=== PATIENT | female | born 1985 | race Caucasian/White ===

== ENCOUNTER 2016-08-22 15:24 | Inpatient (IN) | payer MEDICAID ==
[2016-08-21] MEDS: LORazepam 2 MG/ML, 1ML IVPush PRN (22:50)
[~2016-08-22] VITALS: Ht 147.3 cm; Wt 63.1 kg
[2016-08-22 16:26] LABS: HEMOGLOBIN 14.8 g/dL (11.7-16.4)
[2016-08-22] MEDS ORDERED: ONDANSETRON 2MG/ML, 2ML IVPush ONE (16:30)
[2016-08-22] MEDS ORDERED: SODIUM CHLORIDE FLUSH 10ML SYR IVF ONE (16:30)
[2016-08-22] MEDS ORDERED: SODIUM CHLORIDE 0.9% 1,000ML IVBOLUS ONE ×2 (16:30→17:00)
[2016-08-22] MEDS ORDERED: ONDANSETRON 2MG/ML, 2ML ONE (16:32)
[2016-08-22 16:36] LABS: BLOOD UREA NITROGEN 41 mg/dL (7-18)
[2016-08-22 16:54] LABS: ACETAMINOPHEN < 2 mcg/mL (10-30)
[2016-08-22] MEDS ORDERED: LORazepam 2 MG/ML, 1ML IVPush ONE ×2 (17:00)
[2016-08-22] MEDS ORDERED: LORazepam 2 MG/ML, 1ML ONE (17:02)
[2016-08-22 17:11] LABS: ASPARTATE AMINO TRANSFERASE 11170 U/L (15-37)
[2016-08-22] MEDS ORDERED: DEXTROSE 50%, 50ML SYRINGE IVPush ONE (17:30)
[2016-08-22] MEDS ORDERED: DEXTROSE 50%, 50ML SYRINGE ONE (17:33)
[2016-08-22] MEDS ORDERED: MELO-184 PO (17:37)
[2016-08-22] MEDS ORDERED: CYCL-259 PO (17:37)
[2016-08-22] MEDS ORDERED: ACET-709 PO (17:37)
[2016-08-22] MEDS ORDERED: ACETYLCYSTEINE IV ONE ×3 (18:00→23:00)
[2016-08-22] MEDS ORDERED: DEXTROSE 5% IV ONE ×3 (18:00→23:00)
[2016-08-22] MEDS ORDERED: SODIUM CHLORIDE 0.9% 1,000 ML IV SCH (18:42)
[2016-08-22] MEDS ORDERED: PHYTONADIONE 10 MG in SODIUM CHLORIDE 0.9% 50 ML IV ONE (19:00)
[2016-08-22] MEDS ORDERED: DOCUSATE 100 MG CAPSULE PO PRN (19:00)
[2016-08-22] MEDS ORDERED: ONDANSETRON 2MG/ML, 2ML IVP PRN (19:00)
[2016-08-22] MEDS ORDERED: POLYETHYLENE GLYCOL 17 GM PACKET PO PRN (19:00)
[2016-08-22] MEDS ORDERED: BISACODYL 10 MG SUPP PR PRN (19:00)
[2016-08-22] MEDS ORDERED: LABETALOL 5MG/ML, 20ML IV PRN (19:00)
[2016-08-22] MEDS: D5%-0.45% NACL 1,000 ML IV SCH (19:47)
[2016-08-22 20:23] LABS: HIV 1&2 ANTIBODY SCREEN Nonreactive (Nonreactive); HIV-1 p24 ANTIGEN Nonreactive (Nonreactive)
[2016-08-22 21:36] LABS: ABG COLLECTION SITE RIGHT RADIAL; COLLATERAL CIRCULATION TESTING NORMAL
[2016-08-22] MEDS: HEPARIN 5,000 UNITS/ML, 1ML SQ SCH (22:02)
[2016-08-22] MEDS: HALOPERIDOL 5 MG/ML IV PRN ×2 (22:45→23:20)
[2016-08-22] MEDS: LORazepam 2 MG/ML, 1ML IVPush PRN ×2 (22:55→23:21)
[2016-08-22 23:00] VITALS: BP 120/62
[2016-08-22] MEDS: LACTULOSE 20 GM/30 ML UDC PO SCH (23:16)
[2016-08-22 23:54] LABS: DAU SCREEN DISCLAIMER
[2016-08-23 00:25] LABS: HCG UR OBC PASS
[2016-08-23] MEDS: D5%-0.45% NACL 1,000 ML IV SCH ×3 (03:29→23:57)
[2016-08-23] MEDS: HEPARIN 5,000 UNITS/ML, 1ML SQ SCH ×2 (03:29→11:00)
[2016-08-23 04:00] VITALS: BP 126/86
[2016-08-23 04:50] LABS: HEMOGLOBIN 12.9 g/dL (11.7-16.4)
[2016-08-23 04:55] LABS: BLOOD UREA NITROGEN 30 mg/dL (7-18)
[2016-08-23 05:14] LABS: ASPARTATE AMINO TRANSFERASE 6939 U/L (15-37)
[2016-08-23] MEDS: RIFAXIMIN 550 MG TABLET PO SCH ×3 (06:17→20:46)
[2016-08-23] MEDS ORDERED: LABETALOL 5MG/ML, 20ML IV PRN (07:24)
[2016-08-23] MEDS ORDERED: POTASSIUM CHLORIDE 10% 40 MEQ/30 ML UDC PO ONE (07:30)
[2016-08-23] MEDS: PANTOPRAZOLE 40 MG IV IVP SCH (09:26)
[2016-08-23] MEDS: LACTULOSE 20 GM/30 ML UDC PO SCH ×3 (09:26→20:46)
[2016-08-24 04:00] VITALS: BP 140/82
[2016-08-24 04:42] LABS: HEMOGLOBIN 12.4 g/dL (11.7-16.4)
[2016-08-24 04:53] LABS: BLOOD UREA NITROGEN 15 mg/dL (7-18)
[2016-08-24 05:09] LABS: ASPARTATE AMINO TRANSFERASE 3343 U/L (15-37)
[2016-08-24] MEDS: D5%-0.45% NACL 1,000 ML IV SCH (06:12)
[2016-08-24] MEDS: ACETYLCYSTEINE IV SCH (09:11)
[2016-08-24] MEDS: DEXTROSE 5% IV SCH (09:11)
[2016-08-24] MEDS: PANTOPRAZOLE 40 MG IV IVP SCH (09:11)
[2016-08-24] MEDS: RIFAXIMIN 550 MG TABLET PO SCH ×2 (09:31→21:19)
[2016-08-24] MEDS: POTASSIUM CHLORIDE 10% 40 MEQ/30 ML UDC PO SCH ×2 (09:31→21:20)
[2016-08-24] MEDS: LACTULOSE 20 GM/30 ML UDC PO SCH ×3 (09:31→21:19)
[2016-08-24] MEDS ORDERED: MORPHINE SULFATE 4 MG/ML, 1ML ONE (09:49)
[2016-08-24] MEDS ORDERED: MIDAZOLAM 1 MG/ML, 2ML ONE (09:49)
[2016-08-24] MEDS ORDERED: MORPHINE SULFATE 4 MG/ML, 1ML IVPush PRN (10:00)
[2016-08-24] MEDS ORDERED: MIDAZOLAM 1 MG/ML, 2ML IVPush PRN (10:00)
[2016-08-24] MEDS ORDERED: GADOBUTROL 7.5 MMOL/7.5 ML PFS ONE (10:43)
[2016-08-24] MEDS: D5%-0.9% NACL 1,000 ML IV SCH ×2 (11:24→21:22)
[2016-08-24 11:49] LABS: HEPATITIS C VIRUS ANTIBODY Nonreactive (Nonreactive)
[2016-08-24] MEDS ORDERED: LACTULOSE 3.3 GM/5 ML ORAL.SOL RC ONE ×2 (12:00→18:00)
[2016-08-24 16:58] LABS: ANA SCREEN NEGATIVE (Negative)
[2016-08-25] MEDS: DEXTROSE 5% IV SCH ×2 (04:14→22:34)
[2016-08-25] MEDS: ACETYLCYSTEINE IV SCH ×2 (04:14→22:34)
[2016-08-25 04:42] LABS: BLOOD UREA NITROGEN 8 mg/dL (7-18)
[2016-08-25 04:58] LABS: ASPARTATE AMINO TRANSFERASE 1508 U/L (15-37)
[2016-08-25] MEDS ORDERED: POTASSIUM PHOSPHATE 44 MEQ in SODIUM CHLORIDE 0.9% 500 ML IV ONE (05:00)
[2016-08-25] MEDS: D5%-0.9% NACL 1,000 ML IV SCH ×2 (06:02→22:33)
[2016-08-25] MEDS ORDERED: SODIUM PHOSPHATE 20 MMOL in SODIUM CHLORIDE 0.9% 500 ML IV ONE (07:30)
[2016-08-25] MEDS ORDERED: POTASSIUM CHLORIDE 10% 40 MEQ/30 ML UDC PO ONE (07:30)
[2016-08-25] MEDS: PANTOPRAZOLE 40 MG IV IVP SCH (09:31)
[2016-08-25] MEDS: RIFAXIMIN 550 MG TABLET PO SCH ×2 (09:31→20:07)
[2016-08-25] MEDS: LACTULOSE 20 GM/30 ML UDC PO SCH ×2 (09:31→15:59)
[2016-08-25] MEDS: OXYcodone IR 5MG TABLET PO PRN ×2 (15:19→20:07)
[2016-08-25 19:06] LABS: HERPES SIMPLEX VIRUS-1 DNA PCR Negative (Negative); HERPES SIMPLEX VIRUS-2 DNA PCR Negative (Negative)
[2016-08-26 05:00] LABS: HEMOGLOBIN 12.9 g/dL (11.7-16.4)
[2016-08-26] MEDS: OXYcodone IR 5MG TABLET PO PRN ×3 (05:06→22:41)
[2016-08-26 05:11] LABS: BLOOD UREA NITROGEN 6 mg/dL (7-18)
[2016-08-26 05:21] LABS: ASPARTATE AMINO TRANSFERASE 892 U/L (15-37)
[2016-08-26] MEDS ORDERED: POTASSIUM PHOSPHATE 44 MEQ in SODIUM CHLORIDE 0.9% 500 ML IV ONE (06:00)
[2016-08-26] MEDS ORDERED: SODIUM PHOSPHATE 20 MMOL in SODIUM CHLORIDE 0.9% 500 ML IV ONE (07:30)
[2016-08-26] MEDS: DEXTROSE 5% IV SCH (08:00)
[2016-08-26] MEDS: ACETYLCYSTEINE IV SCH (08:00)
[2016-08-26] MEDS: PANTOPRAZOLE 40 MG IV IVP SCH (08:11)
[2016-08-26] MEDS: D5%-0.9% NACL 1,000 ML IV SCH (09:00)
[2016-08-26] MEDS: RIFAXIMIN 550 MG TABLET PO SCH ×2 (10:18→22:34)
[2016-08-26] MEDS: LACTULOSE 20 GM/30 ML UDC PO SCH ×2 (10:18→22:34)
[2016-08-26] MEDS: POTASSIUM CHLORIDE 10% 40 MEQ/30 ML UDC PO SCH ×2 (10:18→22:34)
[2016-08-26] MEDS ORDERED: ALUMINUM/MAG/SIMETHICONE 30 ML UDC PO PRN (12:30)
[2016-08-26 14:28] VITALS: BP 115/78
[2016-08-26 18:38] VITALS: BP 122/81
[2016-08-27 00:24] VITALS: BP 109/71
[2016-08-27 05:35] LABS: HEMOGLOBIN 11.7 g/dL (11.7-16.4)
[2016-08-27 05:44] LABS: BLOOD UREA NITROGEN 8 mg/dL (7-18)
[2016-08-27 05:52] LABS: ASPARTATE AMINO TRANSFERASE 336 U/L (15-37)
[2016-08-27 06:24] LABS: DIFF TOTAL CELLS COUNTED 100 CELL DIFF
[2016-08-27 06:26] LABS: VERIFY COUNTS? YES
[2016-08-27 06:27] LABS: ANISOCYTOSIS 1+; POLYCHROMASIA 1+
[2016-08-27] MEDS ORDERED: SODIUM PHOSPHATE 20 MMOL in SODIUM CHLORIDE 0.9% 500 ML IV ONE (07:30)
[2016-08-27 07:37] VITALS: BP 105/70
[2016-08-27] MEDS ORDERED: PROCHLORPERAZINE 10MG TABLET PO PRN (09:30)
[2016-08-27] MEDS: RIFAXIMIN 550 MG TABLET PO SCH (09:52)
[2016-08-27] MEDS: POTASSIUM CHLORIDE 10% 40 MEQ/30 ML UDC PO SCH ×2 (09:52→20:22)
[2016-08-27] MEDS: LACTULOSE 20 GM/30 ML UDC PO SCH (09:52)
[2016-08-27] MEDS: D5%-0.9% NACL 1,000 ML IV SCH (13:13)
[2016-08-27] MEDS: OXYcodone IR 5MG TABLET PO PRN (13:30)
[2016-08-27 13:59] VITALS: BP 147/93
[2016-08-27 19:00] VITALS: BP 130/82
[2016-08-28 00:23] VITALS: BP 116/71
[2016-08-28 05:42] LABS: HEMOGLOBIN 11.1 g/dL (11.7-16.4)
[2016-08-28 05:52] LABS: ASPARTATE AMINO TRANSFERASE 179 U/L (15-37); BLOOD UREA NITROGEN 7 mg/dL (7-18)
[2016-08-28 07:51] VITALS: BP 116/79
[2016-08-28] MEDS ORDERED: SODIUM PHOSPHATE 20 MMOL in SODIUM CHLORIDE 0.9% 500 ML IV ONE (08:00)
[2016-08-28] MEDS: POTASSIUM CHLORIDE 10% 40 MEQ/30 ML UDC PO SCH (08:29)
[2016-08-28] MEDS: D5%-0.9% NACL 1,000 ML IV SCH (08:36)
[2016-08-28] MEDS: OXYcodone IR 5MG TABLET PO PRN (11:04)
[2016-08-28 12:54] VITALS: BP 121/86
== END 2016-08-28 13:47 | disposition home or self-care (01) | DRG 441 ==
LOC: ED 18:18 → EDIP 18:19 → CCU 18:54 → 3NE 08-26 14:20
PROVIDERS: ADMIT Internal Medicine; ATTEND Internal Medicine
PROC: 0T9B70Z Drainage of Bladder with Drainage Device, Via Natural or Artificial Opening (ICD-10-PCS; principal; 2016-08-22)
DX: K72.90 Hepatic failure, unspecified without coma (principal); G93.41 Metabolic encephalopathy; D68.4 Acquired coagulation factor deficiency; N17.9 Acute kidney failure, unspecified; R65.10 Systemic inflammatory response syndrome (SIRS) of non-infectious origin without acute organ dysfunction; E87.1 Hypo-osmolality and hyponatremia; K76.6 Portal hypertension; D72.828 Other elevated white blood cell count; E16.2 Hypoglycemia, unspecified; F12.10 Cannabis abuse, uncomplicated; F17.200 Nicotine dependence, unspecified, uncomplicated; Z82.49 Family history of ischemic heart disease and other diseases of the circulatory system; M32.9 Systemic lupus erythematosus, unspecified; E87.6 Hypokalemia
CPT/HCPCS: 36415; 36600; 51701; 70450; 70553; 74000; 76705; 80053; 80074; 80307; 80329; 81001; 81025; 82140; 82248; 82390; 82550; 82728; 82803; 82962; 83516; 83540; 83550; 83605; 83735; 84100; 84439; 84443; 85025; 85610; 85730; 86038; 86644; 86645; 86703; 87040; 87081; 87529; 87899; 93005; 96361; 96374; 96375; A9585; J0132; J1644; J2405; J3430; J7042; J7060; J7070; Q0164; C9113; G0435; G0480; J1630; J2060; J7030; J7040; P9612

== ENCOUNTER 2017-02-23 15:00 | Observation (INO) | payer MEDICAID ==
[~2017-02-23] VITALS: Ht 165.1 cm; Wt 57.6 kg
[~2017-02-23 15:00] MED LIST: ACET-709 PO; CYCL-259 PO; MELO15TA24 PO
[2017-02-23 15:29] LABS: HEMATOCRIT 41.3 % (34.6-47.8); HEMOGLOBIN 14.1 g/dL (11.7-16.4); WHITE BLOOD COUNT 15.1 x10^3/uL (3.4-10)
[2017-02-23 15:39] LABS: ASPARTATE AMINO TRANSFERASE 21 U/L (15-37); BLOOD UREA NITROGEN 12 mg/dL (7-18)
[2017-02-23 15:42] LABS: ACETAMINOPHEN < 2 mcg/mL (10-30)
[2017-02-23] MEDS ORDERED: SODIUM CHLORIDE FLUSH 10ML SYR IVF ONE (16:00)
[2017-02-23 16:06] LABS: DAU SCREEN DISCLAIMER
[2017-02-23] MEDS ORDERED: ZIPRASIDONE 20 MG INJ IM ONE (18:30)
[2017-02-23] MEDS ORDERED: ONDANSETRON ODT 4 MG PO PRN (19:00)
[2017-02-23 20:00] VITALS: BP 146/92
[2017-02-23] MEDS: HALOPERIDOL 5 MG TABLET PO PRN (21:04)
[2017-02-23 22:40] VITALS: BP 121/80
[2017-02-24 08:00] VITALS: BP 119/76
[2017-02-24] MEDS: HALOPERIDOL 5 MG TABLET PO PRN (08:17)
[2017-02-24] MEDS ORDERED: NICOTINE 21 MG/24 HR PATCH.TD24 ONE (10:16)
[2017-02-24] MEDS: NICOTINE 21 MG/24 HR PATCH.TD24 TD SCH (10:19)
[2017-02-24 12:22] LABS: HEMATOCRIT 40.6 % (34.6-47.8); HEMOGLOBIN 13.9 g/dL (11.7-16.4)
[2017-02-24] MEDS: ACETAMINOPHEN 325 MG TABLET PO PRN (16:19)
[2017-02-24] MEDS ORDERED: LORazepam 2 MG/ML, 1ML IM ONE (16:30)
[2017-02-24] MEDS ORDERED: OLANZAPINE 2.5 MG TABLET PO PRN (17:30)
[2017-02-24] MEDS ORDERED: LORazepam 2 MG/ML, 1ML IM PRN (18:00)
[2017-02-24 21:33] VITALS: BP 123/78
[2017-02-25 07:45] VITALS: BP 102/68
[2017-02-25] MEDS: LORazepam 1MG TABLET PO PRN ×3 (08:00→19:21)
[2017-02-25] MEDS: NICOTINE 21 MG/24 HR PATCH.TD24 TD SCH (08:38)
[2017-02-25 19:45] VITALS: BP 106/73
[2017-02-26] MEDS: LORazepam 1MG TABLET PO PRN ×5 (04:16→21:20)
[2017-02-26 07:31] VITALS: BP 109/77
[2017-02-26] MEDS: NICOTINE 21 MG/24 HR PATCH.TD24 TD SCH (08:39)
[2017-02-26] MEDS: ACETAMINOPHEN 325 MG TABLET PO PRN (16:23)
[2017-02-26] MEDS ORDERED: ONDANSETRON ODT 4 MG PO PRN (19:00)
[2017-02-26] MEDS ORDERED: ACETAMINOPHEN 325 MG TABLET PO PRN (19:00)
[2017-02-26] MEDS: IBUPROFEN 200 MG TABLET PO PRN (19:09)
[2017-02-26 19:30] VITALS: BP 116/75
[2017-02-26] MEDS: FLUTICASONE NASAL SPRAY 16GM NAS SCH (21:20)
[2017-02-27] MEDS: LORazepam 1MG TABLET PO PRN ×3 (02:10→19:28)
[2017-02-27 05:52] LABS: HEMOGLOBIN 12.9 g/dL (11.7-16.4); WHITE BLOOD COUNT 8.6 x10^3/uL (3.4-10)
[2017-02-27 07:33] VITALS: BP 116/81
[2017-02-27] MEDS: FLUTICASONE NASAL SPRAY 16GM NAS SCH ×2 (08:38→20:53)
[2017-02-27] MEDS: NICOTINE 21 MG/24 HR PATCH.TD24 TD SCH (08:38)
[2017-02-27] MEDS ORDERED: LORATADINE 10 MG TABLET PO PRN (10:00)
[2017-02-27] MEDS ORDERED: ACYC-114 PO (14:50)
[2017-02-27] MEDS: ACYCLOVIR 400 MG TABLET PO SCH ×2 (16:45→20:53)
[2017-02-27] MEDS: IBUPROFEN 200 MG TABLET PO PRN (18:11)
[2017-02-27 19:15] VITALS: BP 116/79
[2017-02-28 07:37] VITALS: BP 106/73
[2017-02-28] MEDS: FLUTICASONE NASAL SPRAY 16GM NAS SCH ×3 (08:32→21:48)
[2017-02-28] MEDS: NICOTINE 21 MG/24 HR PATCH.TD24 TD SCH (08:32)
[2017-02-28] MEDS: ACYCLOVIR 400 MG TABLET PO SCH ×3 (08:32→21:46)
[2017-02-28] MEDS: LORazepam 1MG TABLET PO PRN ×4 (08:33→21:39)
[2017-02-28] MEDS: IBUPROFEN 200 MG TABLET PO PRN (15:10)
[2017-02-28 19:22] VITALS: BP 104/72
[2017-02-28] MEDS ORDERED: ACYC-114 PO (21:37)
[2017-02-28] MEDS ORDERED: CLON0.5T PO (21:39)
[2017-02-28] MEDS ORDERED: LORA-445 PO (21:44)
== END 2017-02-28 22:47 | disposition home or self-care (01) ==
LOC: ED 17:07 → EDIP 18:37 → 3E 19:47
PROVIDERS: ADMIT Family Medicine; ATTEND Family Medicine
DX: F23 Brief psychotic disorder (principal); D72.829 Elevated white blood cell count, unspecified; R00.0 Tachycardia, unspecified; R82.71 Bacteriuria; A60.00 Herpesviral infection of urogenital system, unspecified; G47.00 Insomnia, unspecified; F41.9 Anxiety disorder, unspecified; Z72.0 Tobacco use
CPT/HCPCS: 36415; 70450; 80053; 80307; 80329; 81001; 82140; 82962; 83690; 84703; 85025; 85610; 87086; 93005; 96372; 99285; G0378; J2060; J3486; G0479; G0480

== ENCOUNTER 2018-10-01 19:29 | Emergency (ER) | payer MEDICAID ==
[~2018-10-01] VITALS: Ht 165.1 cm; Wt 64.0 kg
[~2018-10-01 19:29] MED LIST changes: +ACYC-114 PO; +CLON0.5T PO; +LORA-445 PO
[2018-10-01 19:56] VITALS: BP 143/75
--- NOTE | 2018-10-01 20:02 | NUR ---
PT AMBULATED BACK TO ROOM 31 WITHOUT DIFFICULTY.
--- NOTE | 2018-10-01 20:12 | NUR ---
PT C/O "SYMPOMS R/T MY AUTOIMMUNE DISEASE LUPUS WELL UPPER AND LOWER INTESTINAL DISCOMFORT AND LEAKAGE". PT WITH SCATTERED THOUGHTS, PACING AROUND ROOM AND USING PHONE OUTSIDE ROOM.
[2018-10-01] MEDS ORDERED: ABILIFY (20:17)
[2018-10-01] MEDS ORDERED: TOPAMAX (20:17)
[2018-10-01] MEDS ORDERED: ZYPREXA (20:18)
[2018-10-01] MEDS ORDERED: OLAN10TA3 PO (20:19)
--- NOTE | 2018-10-01 20:21 | NUR ---
ERP AT BS.
--- NOTE | 2018-10-01 20:50 | NUR ---
LABS DRAWN AT BS. PT AMBULATED TO BR, INSTRUCTED ON CLEAN CATCH URINE SAMPLE.
[2018-10-01 20:54] LABS: BASOPHILS # (AUTO) 0.04 x10^3/uL (0-0.1); BASOPHILS % (AUTO) 0 % (0-1); EOSINOPHILS % (AUTO) 1 % (1-7); LYMPHOCYTES # (AUTO) 3.08 x10^3/uL (1-3.4); LYMPHOCYTES % (AUTO) 26 % (22-44); MD NO; MEAN CORPUSCULAR HEMOGLOBIN 30.9 pg (27.0-34.8); MEAN CORPUSCULAR HGB CONC 34.3 g/dL (32.4-35.8); MEAN CORPUSCULAR VOLUME 90.3 fL (80-100); MEAN PLATELET VOLUME 7.9 fL (7.4-10.4); MONOCYTES # (AUTO) 0.67 x10^3/uL (0.2-0.8); MONOCYTES % (AUTO) 6 % (2-9); NEUTROPHILS # (AUTO) 8.13 x10^3/uL (1.8-6.8); NEUTROPHILS % (AUTO) 68 % (42-75); PLATELET COUNT 372 x10^3/uL (130-400); RED BLOOD COUNT 4.31 x10^6/uL (3.82-5.3); RED CELL DISTRIBUTION WIDTH 15.5 % (9.6-15.2)
[2018-10-01 21:06] LABS: ALANINE AMINOTRANSFERASE 53 U/L (12-78); ALBUMIN 4.5 g/dL (3.4-5.0); ANION GAP 11 mmol/L (5-15); CALCIUM 9.4 mg/dL (8.5-10.1); CHLORIDE 116 mmol/L (98-107); CREATININE 0.85 mg/dL (0.55-1.02)
[2018-10-01 21:10] LABS: ALKALINE PHOSPHATASE 76 U/L (45-117); BILIRUBIN,TOTAL 0.7 mg/dL (0.2-1.0); TOTAL PROTEIN 8.3 g/dL (6.4-8.2)
[2018-10-01 21:25] LABS: CULTURE INDICATED? YES; MICROSCOPIC INDICATED
--- NOTE | 2018-10-01 21:28 | NUR ---
father is on his was to come get pt
--- NOTE | 2018-10-01 21:34 | NUR ---
PT DRINKING WATER AT THIS TIME, TOLERATING FINE.
--- NOTE | 2018-10-01 21:46 | NUR ---
PT'S FATHER ON THE PHONE, VERY CONCERNED ABOUT HIS DAUGHTER'S HEALTH. STATES PT HAS HAD SEVERAL SEIZURES OVER THE PAST MONTHS. ALSO STATES PT WAS CLOSE TO NEEDING A LIVER TRANSPLANT IN THE PAST. REQUESTING AN EEG. Addendum: 10/01/18 at 2202 by WILMERNSON PT'S FATHER RAMBLING ON THE PHONE AND ANGRY. ERP NOTIFIED OF FATHER'S STATEMENTS. PT TO BE DISCHARGED. NEW CLOTHES PROVIDED TO PT.
--- NOTE | 2018-10-01 22:09 | NUR ---
D/C INSTRUCTIONS & F/U APPT RV'WD WITH PT. PT AMBULATED OUT OF ED WITHOUT DIFFICULTY.
== END 2018-10-01 22:10 | disposition home or self-care (01) ==
LOC: ED 20:36
DX: E86.0 Dehydration (principal); F31.9 Bipolar disorder, unspecified; Z87.891 Personal history of nicotine dependence
CPT/HCPCS: 36415; 71045; 80053; 81001; 84703; 85025; 87086; 99284

== ENCOUNTER 2018-10-03 13:23 | Inpatient (IN) | payer MEDICAID ==
[~2018-10-03] VITALS: Ht 165.1 cm; Wt 64.1 kg
[~2018-10-03 13:23] MED LIST changes: +ABILIFY; +OLAN10TA3 PO; +TOPAMAX PO; +ZYPREXA
[2018-10-03] MEDS ORDERED: LORazepam 1MG TABLET PO ONE (14:00)
[2018-10-03] MEDS ORDERED: LORazepam 1MG TABLET ONE (14:17)
--- NOTE | 2018-10-03 14:20 | NUR ---
PT REFUSING ATIVAN AND EKG. PT NOT MAKING SENSE, ASKING ME HOW I CLICKED UP HER HEARING. WHEN ASKED WHAT SHE IS BEING SEEN FOR SHE STATES JOINT PAIN
--- NOTE | 2018-10-03 14:31 | NUR ---
PT REFUSED EKG
[2018-10-03 14:32] LABS: BASOPHILS # (AUTO) 0.03 x10^3/uL (0-0.1); BASOPHILS % (AUTO) 0 % (0-1); EOSINOPHILS # (AUTO) 0.26 x10^3/uL (0-0.4); EOSINOPHILS % (AUTO) 3 % (1-7); LYMPHOCYTES # (AUTO) 2.82 x10^3/uL (1-3.4); LYMPHOCYTES % (AUTO) 29 % (22-44); MD NO; MEAN CORPUSCULAR HEMOGLOBIN 30.2 pg (27.0-34.8); MEAN CORPUSCULAR HGB CONC 33.8 g/dL (32.4-35.8); MEAN CORPUSCULAR VOLUME 89.3 fL (80-100); MEAN PLATELET VOLUME 8.5 fL (7.4-10.4); MONOCYTES # (AUTO) 0.54 x10^3/uL (0.2-0.8); MONOCYTES % (AUTO) 6 % (2-9); NEUTROPHILS # (AUTO) 6.18 x10^3/uL (1.8-6.8); NEUTROPHILS % (AUTO) 63 % (42-75); PLATELET COUNT 377 x10^3/uL (130-400); RED BLOOD COUNT 4.45 x10^6/uL (3.82-5.3); RED CELL DISTRIBUTION WIDTH 15.9 % (9.6-15.2)
[2018-10-03 14:38] LABS: ANION GAP 5 mmol/L (5-15); CHLORIDE 121 mmol/L (98-107); CREATININE 1.09 mg/dL (0.55-1.02)
[2018-10-03 15:02] LABS: SALICYLATE LEVEL 45.2 mg/dL (2.8-20.0)
[2018-10-03 15:03] LABS: ACETAMINOPHEN < 2 mcg/mL (10-30)
--- NOTE | 2018-10-03 15:55 | NUR ---
SPOKE WITH TANJA POISON CONTROL REGARDING PT'S ELEVATED SALYCITATE LEVEL. SUGGESTIONS: BICARB 2 AMPS FOLLOWED BY BICARB DRIP. REPEAT SALYCITATE LEVEL EVERY 2 HOURS ALONG WITH METABOLIC PANEL. POTENTIAL FOR ERATIC ASORPTION RATE. OBTAIN LIVER ENZYME LEVELS ALONG WITH TEST. INFORMATION PASSED TO
[2018-10-03] MEDS ORDERED: SODIUM BICARB 8.4%, 50ML SYRINGE IVPush ONE (16:00)
[2018-10-03] MEDS ORDERED: SODIUM BICARBONATE 8.4% 150 MEQ in DEXTROSE 5% 1,000 ML IV ONE (16:00)
[2018-10-03 16:03] LABS: ALANINE AMINOTRANSFERASE 42 U/L (12-78)
[2018-10-03 16:06] LABS: BILIRUBIN,TOTAL 0.2 mg/dL (0.2-1.0)
[2018-10-03 16:07] LABS: ALKALINE PHOSPHATASE 78 U/L (45-117); BILIRUBIN, DIRECT < 0.1 mg/dL (0.1-0.2); BILIRUBIN,INDIRECT 0.1 mg/dL (0.0-2.0); TOTAL PROTEIN 7.9 g/dL (6.4-8.2)
[2018-10-03] MEDS ORDERED: SODIUM BICARB 8.4%, 50ML SYRINGE ONE (16:09)
--- NOTE | 2018-10-03 16:24 | NUR ---
PLACED PATIENT ON CABLE MOCK UP ASSEMBLER, SINUS AT 88, CONTINOUS SP02 AT 100%, CYCLE VS. MEDICATED PER ORDERS. PT TOLERATED WELL. PT MOVED TO ROOM 40, SITTER AT BS. PT COOPERATIVE.
--- NOTE | 2018-10-03 16:45 | NUR ---
REPORT TO IBRAHIMA YOON
--- NOTE | 2018-10-03 17:00 | NUR ---
PT FATHER CALLED REPORTS PT HAD TYLENOL OP APPROX 8 WKS AGO IN [place] AT THAT TIME THEN TO [facility] FOR TWO WEEKS WHEN RELEASED FROM [facility] PT PRESENTED TO [facility] IN [place] FOR PSY ISSUES AND WAS SENT TO [facility] [place] WITH CARE PT RECEIVED THERE RE HER DC AND MEDS NOT GIVEN HE WANTS CALLED ON PT DC JAKE HAYNES [facility] [phone]
[2018-10-03] MEDS ORDERED: SODIUM BICARBONATE 8.4% 150 MEQ in DEXTROSE 5% 1,000 ML IV SCH (17:30)
[2018-10-03 17:39] LABS: AMPHETAMINE SCREEN, URINE Negative (Negative); BARBITURATE SCREEN, URINE Negative (Negative); BENZODIAZEPINE SCREEN, URINE Negative (Negative); CANNABINOID SCREEN, URINE Negative (Negative); COCAINE SCREEN, URINE Negative (Negative); METHADONE SCREEN, URINE Negative (Negative); OPIATE SCREEN, URINE Negative (Negative)
[2018-10-03 18:03] LABS: ALANINE AMINOTRANSFERASE 33 U/L (12-78); ALBUMIN 3.5 g/dL (3.4-5.0); ANION GAP 6 mmol/L (5-15); CALCIUM 8.2 mg/dL (8.5-10.1); CHLORIDE 121 mmol/L (98-107); CREATININE 0.84 mg/dL (0.55-1.02)
[2018-10-03 18:05] LABS: ALKALINE PHOSPHATASE 61 U/L (45-117); BILIRUBIN,TOTAL 0.3 mg/dL (0.2-1.0); SALICYLATE LEVEL 35.5 mg/dL (2.8-20.0); TOTAL PROTEIN 6.6 g/dL (6.4-8.2)
--- NOTE | 2018-10-03 18:16 | NUR ---
REPORT CALLED TO THE FLOOR REVIEWED PT CONDITION AND HOLD STATUS WITH SITTER COMMING WITH PT
[2018-10-03 20:01] LABS: ALANINE AMINOTRANSFERASE 32 U/L (12-78); ALBUMIN 3.3 g/dL (3.4-5.0); ANION GAP 6 mmol/L (5-15); CALCIUM 8.2 mg/dL (8.5-10.1); CHLORIDE 120 mmol/L (98-107); CREATININE 0.82 mg/dL (0.55-1.02)
[2018-10-03 20:03] LABS: ALKALINE PHOSPHATASE 57 U/L (45-117); BILIRUBIN,TOTAL 0.1 mg/dL (0.2-1.0); TOTAL PROTEIN 6.4 g/dL (6.4-8.2)
[2018-10-03 20:11] LABS: SALICYLATE LEVEL 32.8 mg/dL (2.8-20.0)
[2018-10-03] MEDS ORDERED: POTASSIUM CHLORIDE 20 MEQ TAB.ER.PRT PO SCH ×2 (20:30→21:00)
[2018-10-03] MEDS ORDERED: POTASSIUM CHLORIDE 20 MEQ TAB.ER.PRT PO ONE (21:00)
[2018-10-03 22:37] LABS: ALANINE AMINOTRANSFERASE 34 U/L (12-78); ALBUMIN 3.2 g/dL (3.4-5.0); ANION GAP 8 mmol/L (5-15); CALCIUM 7.9 mg/dL (8.5-10.1); CHLORIDE 118 mmol/L (98-107); CREATININE 0.94 mg/dL (0.55-1.02); SALICYLATE LEVEL 27.7 mg/dL (2.8-20.0)
[2018-10-03 22:40] LABS: ALKALINE PHOSPHATASE 57 U/L (45-117); TOTAL PROTEIN 6.2 g/dL (6.4-8.2)
[2018-10-03 22:41] LABS: BILIRUBIN,TOTAL < 0.1 mg/dL (0.2-1.0)
[2018-10-03] MEDS ORDERED: POTASSIUM CHLORIDE 40 MEQ in DEXTROSE 5% 500 ML IV ONE (23:30)
[2018-10-04 00:16] VITALS: BP 92/59
[2018-10-04 03:54] LABS: MICROSCOPIC NOT IND
[2018-10-04 04:01] LABS: CULTURE INDICATED? NO
[2018-10-04 05:19] LABS: ALBUMIN 3.2 g/dL (3.4-5.0); ANION GAP 4 mmol/L (5-15); CHLORIDE 116 mmol/L (98-107); SALICYLATE LEVEL 17.4 mg/dL (2.8-20.0)
[2018-10-04 05:22] LABS: ALANINE AMINOTRANSFERASE 30 U/L (12-78); ALKALINE PHOSPHATASE 54 U/L (45-117); BILIRUBIN,TOTAL 0.3 mg/dL (0.2-1.0); CREATININE 0.87 mg/dL (0.55-1.02); TOTAL PROTEIN 6.1 g/dL (6.4-8.2)
[2018-10-04 06:55] VITALS: BP 92/60
[2018-10-04] MEDS ORDERED: ACYC-114 PO (11:48)
[2018-10-04] MEDS ORDERED: ARIP5TAB13 PO (12:01)
[2018-10-04] MEDS ORDERED: LORA1TAB PO (12:03)
[2018-10-04] MEDS: POTASSIUM CHLORIDE 20 MEQ TAB.ER.PRT PO SCH ×2 (13:07→17:17)
[2018-10-04] MEDS: OLANZAPINE 10 MG TABLET PO SCH (13:08)
[2018-10-04 13:22] VITALS: BP 93/60
[2018-10-04 14:06] LABS: ALANINE AMINOTRANSFERASE 31 U/L (12-78); ALBUMIN 3.4 g/dL (3.4-5.0); ANION GAP 4 mmol/L (5-15); CALCIUM 8.4 mg/dL (8.5-10.1); CHLORIDE 113 mmol/L (98-107); CREATININE 1.03 mg/dL (0.55-1.02); SALICYLATE LEVEL 12.5 mg/dL (2.8-20.0)
[2018-10-04 14:07] LABS: ALKALINE PHOSPHATASE 57 U/L (45-117); BILIRUBIN,TOTAL 0.2 mg/dL (0.2-1.0); TOTAL PROTEIN 6.5 g/dL (6.4-8.2)
[2018-10-04] MEDS ORDERED: SODIUM CHLORIDE 0.45% 1,000 ML IV SCH (15:00)
[2018-10-04] MEDS ORDERED: SODIUM BICARBONATE 8.4% 150 MEQ, POTASSIUM CHLORIDE 40 MEQ in DEXTROSE 5% 1,000 ML IV SCH (18:25)
[2018-10-04] MEDS ORDERED: SODIUM BICARBONATE 8.4% 150 MEQ, POTASSIUM CHLORIDE 20 MEQ in DEXTROSE 5% 1,000 ML IV SCH (18:25)
[2018-10-04 19:00] VITALS: BP 92/59
[2018-10-05 00:27] VITALS: BP 91/57
[2018-10-05 05:33] LABS: CHLORIDE 110 mmol/L (98-107)
[2018-10-05 06:04] LABS: ALANINE AMINOTRANSFERASE 27 U/L (12-78); ALKALINE PHOSPHATASE 82 U/L (45-117); ANION GAP 8 mmol/L (5-15); BILIRUBIN,TOTAL 0.1 mg/dL (0.2-1.0); CREATININE 0.82 mg/dL (0.55-1.02); TOTAL PROTEIN 5.9 g/dL (6.4-8.2)
[2018-10-05 07:47] VITALS: BP 103/67
[2018-10-05] MEDS: OLANZAPINE 10 MG TABLET PO SCH (08:46)
[2018-10-05 13:28] VITALS: BP 103/71
[2018-10-05 18:58] VITALS: BP 105/72
[2018-10-05] MEDS ORDERED: DIPHENHYDRAMINE 50 MG CAPSULE PO PRN (20:00)
[2018-10-05] MEDS ORDERED: ACETAMINOPHEN 325 MG TABLET PO ONE (20:00)
[2018-10-06 07:45] VITALS: BP 102/68
[2018-10-06] MEDS: OLANZAPINE 10 MG TABLET PO SCH (07:59)
[2018-10-06 19:00] VITALS: BP 111/77
[2018-10-06] MEDS: MELATONIN 5 MG TABLET PO PRN (19:39)
[2018-10-06] MEDS ORDERED: ACETAMINOPHEN 325 MG TABLET PO ONE (22:30)
[2018-10-07 07:14] VITALS: BP 96/64
[2018-10-07] MEDS: OLANZAPINE 10 MG TABLET PO SCH (07:49)
[2018-10-07 19:36] VITALS: BP 115/77
[2018-10-07] MEDS: MELATONIN 5 MG TABLET PO PRN (20:03)
[2018-10-08 08:00] VITALS: BP 103/70
[2018-10-08] MEDS: OLANZAPINE 10 MG TABLET PO SCH (08:03)
[2018-10-08 20:13] VITALS: BP 123/87
[2018-10-08] MEDS: MELATONIN 5 MG TABLET PO PRN (20:16)
[2018-10-09] MEDS: OLANZAPINE 10 MG TABLET PO SCH (07:57)
[2018-10-09 07:59] VITALS: BP 106/67
[2018-10-09] MEDS ORDERED: NEOSPORIN OINT. PKT 1 PACKET TP PRN (17:30)
[2018-10-09] MEDS: MELATONIN 5 MG TABLET PO PRN (19:42)
[2018-10-09 19:51] VITALS: BP 111/75
[2018-10-09] MEDS: CALCIUM CARBONATE 500 MG TAB.CHEW PO PRN (21:39)
[2018-10-10] MEDS: CALCIUM CARBONATE 500 MG TAB.CHEW PO PRN (01:01)
[2018-10-10 07:56] VITALS: BP 109/75
[2018-10-10] MEDS: OLANZAPINE 10 MG TABLET PO SCH (08:24)
[2018-10-10] MEDS: NICOTINE 7 MG/24 HR PATCH.TD24 TD SCH (14:40)
[2018-10-10] MEDS: MELATONIN 5 MG TABLET PO PRN (20:12)
[2018-10-10 20:28] VITALS: BP 102/66
[2018-10-10] MEDS ORDERED: TEMAZEPAM 15 MG CAPSULE PO ONE (23:30)
[2018-10-11] MEDS: CALCIUM CARBONATE 500 MG TAB.CHEW PO PRN (01:04)
[2018-10-11 02:39] VITALS: BP 99/64
[2018-10-11 07:51] VITALS: BP 99/66
[2018-10-11] MEDS: OLANZAPINE 10 MG TABLET PO SCH (08:08)
[2018-10-11] MEDS: NICOTINE 7 MG/24 HR PATCH.TD24 TD SCH (11:28)
[2018-10-11 19:15] VITALS: BP 121/81
[2018-10-11] MEDS: MELATONIN 5 MG TABLET PO PRN (21:22)
[2018-10-12 08:00] VITALS: BP 101/67
[2018-10-12] MEDS: OLANZAPINE 10 MG TABLET PO SCH (08:45)
[2018-10-12] MEDS: CALCIUM CARBONATE 500 MG TAB.CHEW PO PRN (09:31)
[2018-10-12] MEDS: NICOTINE 7 MG/24 HR PATCH.TD24 TD SCH (11:26)
[2018-10-12] MEDS ORDERED: metFORMIN 850 MG TABLET PO SCH (17:00)
== END 2018-10-12 14:13 | DRG 917 ==
LOC: ED 15:40 → EDIP 16:38 → 4EST 18:23 → 2N 10-05 13:00
PROVIDERS: ADMIT Internal Medicine; ATTEND Internal Medicine
DX: T39.092A Poisoning by salicylates, intentional self-harm, initial encounter (principal); G92 Toxic encephalopathy; E87.0 Hyperosmolality and hypernatremia; R45.851 Suicidal ideations; F23 Brief psychotic disorder; E87.6 Hypokalemia; F31.9 Bipolar disorder, unspecified; T39.095A Adverse effect of salicylates, initial encounter; Z79.84 Long term (current) use of oral hypoglycemic drugs; Z87.891 Personal history of nicotine dependence; Z91.14 Patient's other noncompliance with medication regimen; Y92.89 Other specified places as the place of occurrence of the external cause
CPT/HCPCS: 36415; 80048; 80053; 80076; 80307; 80329; 81003; 82040; 83735; 84443; 84703; 85025; 93005; 96374; G0378; J3480; J7070; G0480; J7060

== ENCOUNTER 2019-04-20 04:44 | Emergency (ER) | payer MEDICAID ==
[~2019-04-20] VITALS: Ht 165.1 cm; Wt 87.2 kg
[~2019-04-20 04:44] MED LIST changes: +ARIP5TAB13 PO; +LORA1TAB PO
--- NOTE | 2019-04-20 05:02 | NUR ---
PT C/O FATIGUE LATELY. STATES" I NEED TO BE ADMITTED TO INPATIENT PSYCH BECAUSE OF MY PTSD." PT DENIES SI/HI. REPORTS HER MEDICATION WAS STOLEN, THEN REPORTS SHE LOST IT. PT SAYS SHE WAS PRESCRIBED SEROQUEL AND ATIVAN. MOVING BACK AND FORTH FROM [facility]. PT DENIES ANY OTHER COMPLAINTS. PT CONNECTED TO MONITORING, SAFETY MEASURES IN PLACE, CALL LIGHT WITHIN REACH.
[2019-04-20] MEDS ORDERED: ZIPRASIDONE 20 MG INJ IM ONE ×2 (05:10→05:30)
[2019-04-20 05:31] LABS: BASOPHILS # (AUTO) 0.05 x10^3/uL (0-0.1); BASOPHILS % (AUTO) 1 % (0-1); EOSINOPHILS # (AUTO) 0.51 x10^3/uL (0-0.4); EOSINOPHILS % (AUTO) 5 % (1-7); LYMPHOCYTES # (AUTO) 2.66 x10^3/uL (1-3.4); LYMPHOCYTES % (AUTO) 25 % (22-44); MD NO; MEAN CORPUSCULAR HEMOGLOBIN 31.2 pg (27.0-34.8); MEAN CORPUSCULAR HGB CONC 33.7 g/dL (32.4-35.8); MEAN CORPUSCULAR VOLUME 92.6 fL (80-100); MEAN PLATELET VOLUME 7.2 fL (7.4-10.4); MONOCYTES # (AUTO) 0.76 x10^3/uL (0.2-0.8); MONOCYTES % (AUTO) 7 % (2-9); NEUTROPHILS # (AUTO) 6.66 x10^3/uL (1.8-6.8); NEUTROPHILS % (AUTO) 63 % (42-75); PLATELET COUNT 462 x10^3/uL (130-400); RED BLOOD COUNT 4.82 x10^6/uL (3.82-5.3); RED CELL DISTRIBUTION WIDTH 14.5 % (9.6-15.2)
[2019-04-20] MEDS ORDERED: HALOPERIDOL 5 MG TABLET ONE (05:41)
[2019-04-20 05:44] LABS: ALANINE AMINOTRANSFERASE 22 U/L (12-78); ALBUMIN 4.1 g/dL (3.4-5.0); ANION GAP 7 mmol/L (5-15); CALCIUM 9.3 mg/dL (8.5-10.1); CHLORIDE 107 mmol/L (98-107); CREATININE 0.92 mg/dL (0.55-1.02); SALICYLATE LEVEL 4.4 mg/dL (2.8-20.0)
[2019-04-20] MEDS ORDERED: LORazepam 1MG TABLET ONE ×2 (05:46→22:43)
[2019-04-20 05:49] LABS: ALKALINE PHOSPHATASE 93 U/L (45-117); BILIRUBIN,TOTAL 0.6 mg/dL (0.2-1.0)
[2019-04-20 05:58] LABS: AMPHETAMINE SCREEN, URINE Negative (Negative); BARBITURATE SCREEN, URINE Negative (Negative); BENZODIAZEPINE SCREEN, URINE Negative (Negative); CANNABINOID SCREEN, URINE Negative (Negative); COCAINE SCREEN, URINE Negative (Negative); METHADONE SCREEN, URINE Negative (Negative); OPIATE SCREEN, URINE Negative (Negative)
[2019-04-20] MEDS ORDERED: HALOPERIDOL 5 MG TABLET PO PRN (06:00)
[2019-04-20] MEDS ORDERED: LORazepam 1MG TABLET PO ONE ×2 (06:00→23:00)
[2019-04-20 06:08] LABS: FREE T4 (FREE THYROXINE) 1.22 ng/dL (0.76-1.46)
--- NOTE | 2019-04-20 06:12 | NUR ---
PT CONNECTED TO MONITORING. PT REFUSED HALDOL AND HEATH, STATES "I CAN ONLY TAKE ATIVAN AND SEROQUEL". REFUSED ANY ALTERNATIVE MEDICATIONS. PT TO BE EVALUATED BY TELE PSYCH. PT HIGHLY IRRITABLE WITH STAFF, PACING THE ROOM, AND GOING IN AND OUT OF THE ROOM. MONITORING IN PLACE, CALL LIGHT WITHIN REACH, ALL SAFETY MEASURES IN PLACE.
[2019-04-20] MEDS ORDERED: FAMOTIDINE 20 MG TABLET PO ONE (06:30)
[2019-04-20] MEDS ORDERED: FAMOTIDINE 20 MG TABLET ONE ×2 (06:40→12:15)
--- NOTE | 2019-04-20 06:54 | NUR ---
REPORT GIVEN TO KARRIE CAMPOS AND KARRIE TERAN.
--- NOTE | 2019-04-20 07:39 | NUR ---
TELEPHONE SBAR REPORT GIVEN TO SOC . TO SEE PATIENT SOON VIA TELE PSYCH.
--- NOTE | 2019-04-20 07:46 | NUR ---
SOC MD CALLED AND STATED THEY ARE UNABLE TO ASSESS PATIENT AT THIS TIME DUE TO PATIENTS LETHARGY. WILL PUT IN ANOTHER ORDER WHEN PATIENT IS MORE AWAKE.
--- NOTE | 2019-04-20 08:18 | NUR ---
PATIENT IS SLEEPING. CHEST RISING AND FALLING OBSERVED.
--- NOTE | 2019-04-20 09:27 | NUR ---
DIET TRAY ORDERED PER PATIENT REQUEST. PATIENT RESTING ON GURNEY WITH CALL LIGHT IN REACH. NO FURTHER NEEDS AT THIS TIME.
--- NOTE | 2019-04-20 10:39 | NUR ---
[facility] Number [phone]
--- NOTE | 2019-04-20 11:53 | NUR ---
THROUGHPUT RN: LORAINE 3E NOTIFIED OF PT.
--- NOTE | 2019-04-20 11:56 | NUR ---
THROUGHPUT RN: LORAINE 3E DECLINED PT.
--- NOTE | 2019-04-20 12:06 | NUR ---
THROUGHPUT RN: PACKET FAXED TO [facility].
[2019-04-20] MEDS ORDERED: NICOTINE 21 MG/24 HR PATCH.TD24 ONE (12:22)
--- NOTE | 2019-04-20 12:24 | NUR ---
[facility] denied patient as they are not contrancted with patients insurance.
--- NOTE | 2019-04-20 12:25 | NUR ---
PATIENTS BELONGINGS COLLECTED.
--- NOTE | 2019-04-20 12:29 | NUR ---
PER SOC MD PATIENT RECEIVES INVEGA MONTHLY AND SHOULD NOT BE GIVEN ANTIPSYCHOTICS IN ED. UNSURE OF DOSE RECEIVED AT THIS TIME. LAST DOSE WAS APPROXIMATELY 2 WEEKS AGO.
[2019-04-20] MEDS ORDERED: NICOTINE 21 MG/24 HR PATCH.TD24 TD ONE (12:30)
--- NOTE | 2019-04-20 12:35 | NUR ---
PATIENT MEDICATED PER EMAR. RESTING ON GURNEY WITH CALL LIGHT IN REACH.
--- NOTE | 2019-04-20 15:12 | NUR ---
PATIENT IS SLEEPING ON GURNEY. CHEST RISE AND FALL OBSERVED.
--- NOTE | 2019-04-20 15:55 | NUR ---
RECEIVED BEDSIDE REPORT FROM KARRIE TERAN. ASSUMING PT CARE AT THIS TIME.
--- NOTE | 2019-04-20 16:59 | NUR ---
DIET TRAY ORDERED. PT RESTING ON HOSP BED. NADN. ALL SAFETY MEASURES OBTAINED. SITTER AT DOOR WAY. PT WITHIN FULL VIEW. WILL CONTINUE TO MONITOR
--- NOTE | 2019-04-20 17:24 | NUR ---
SPOKE WITH ERMELINDA MENCHACA, PT WAS REQUESTING ATIVAN. MEDICATION IS CONTRAINDICATED WITH THE INVEGA SHE TAKES. PT WAS EDUCATED REGARDING SITUATION. PT VERBALIZED UNDERSTANDING.
--- NOTE | 2019-04-20 18:16 | NUR ---
PT SLEEPING ON HOSP BED. NADN. RESPS EQUAL AND UNLABORED. ALL SAFETY MEASURES OBTAINED. WILL CONTINUE TO MONITOR.
--- NOTE | 2019-04-20 18:52 | NUR ---
BEDSIDE REPORT TO PASQUALE Fitch RN AND KARRIE RAGSDALE.
--- NOTE | 2019-04-20 19:00 | NUR ---
ASSUMED CARE FOR THIS PT AND SITTER AT BEDSIDE IN NO DISTRESS IN SECURE ROOM
--- NOTE | 2019-04-20 20:51 | NUR ---
PT REQUESTING MOTRIN AND SLEEPING PILL. ERP AWARE NO ORDER YET.
--- NOTE | 2019-04-20 23:10 | NUR ---
PT MEDICATED FOR ANXIETY ORDERED.
--- NOTE | 2019-04-20 23:51 | NUR ---
PT ASLEEP SITTER AT BEDSIDE.
--- NOTE | 2019-04-21 01:34 | NUR ---
PT ASLEEP IN NO DISTRESS SITTER AT BEDSIDE.
--- NOTE | 2019-04-21 03:30 | NUR ---
PT ASLEEP WITH SITTER AT BEDSIDE
--- NOTE | 2019-04-21 04:23 | NUR ---
PT ASLEEP WITH SITTER AT BEDSIDE
--- NOTE | 2019-04-21 05:36 | NUR ---
PT ASLEEP WITH SITTER AT BEDSIDE
--- NOTE | 2019-04-21 06:28 | NUR ---
PT ASLEEP WITH SITTER AT BEDSIDE. PT WITH NO CHANGE IN STATUS.
--- NOTE | 2019-04-21 06:59 | NUR ---
REPORT RECEIVED FROM KARRIE GIORDANO. PLAN OF CARE DISCUSSED.
--- NOTE | 2019-04-21 07:08 | NUR ---
PATIENT SLEEPING AT THIS TIME, RESPIRATIONS EVEN AND UNLABORED. SITTER AT BEDSIDE.
--- NOTE | 2019-04-21 08:13 | NUR ---
PATIENT PROVIDED WITH MEAL TRAY, AMBULATED TO BATHROOM, DENIES FURTHER NEEDS AT THIS TIME. SITTER AT BEDSIDE.
[2019-04-21] MEDS ORDERED: FAMOTIDINE 20 MG TABLET ONE (08:27)
[2019-04-21] MEDS ORDERED: FAMOTIDINE 20 MG TABLET PO ONE (08:30)
--- NOTE | 2019-04-21 08:36 | NUR ---
PATIENT MEDICATED PER EMAR, NEEDS ADDRESSED.
--- NOTE | 2019-04-21 08:48 | NUR ---
UPON REASSESSING SUICIDE SCREEN, PATIENT STATES "I NEVER FELT SUICIDAL AND DIDN'T WANT TO HURT MYSELF, I JUST NEED INPATIENT CARE FOR MY PTSD".
--- NOTE | 2019-04-21 10:05 | NUR ---
PATIENT AMBULATED TO USE PHONE, GIAT STEADY. GIVEN 10 MINUTE LIMIT.
--- NOTE | 2019-04-21 10:07 | NUR ---
PT BACK IN BED, SITTER AT DOOR.
--- NOTE | 2019-04-21 11:02 | NUR ---
PT REQUESTING NICOTINE PATCH, EXPLAINED THAT THEY ARE 24HR PATCHES, WAS GIVEN ONE YESTERDAY. PT STATES "YOUR CHART IS WRONG THEY PUT IT ON 2 DAYS AGO". EMAR STATES WAS GIVEN 04/20. PATIENT ON JARAD, SITTER AT DOOR.
[2019-04-21] MEDS ORDERED: NICOTINE 21 MG/24 HR PATCH.TD24 ONE (11:49)
--- NOTE | 2019-04-21 11:51 | NUR ---
PATIENT PROVIDED WITH MEAL TRAY, PLACED NICOTINE PATCH. DENIES FURTHER NEEDS AT THIS TIME.
[2019-04-21] MEDS ORDERED: NICOTINE 21 MG/24 HR PATCH.TD24 TD ONE (12:00)
--- NOTE | 2019-04-21 12:30 | NUR ---
PT UP IN BED, DENIES NEEDS, SITTER AT DOOR.
--- NOTE | 2019-04-21 12:45 | NUR ---
PATIENT PACING IN ROOM, SITTER AT DOOR.
--- NOTE | 2019-04-21 13:15 | NUR ---
PSYCH MD IN ROOM.
[2019-04-21] MEDS ORDERED: QUETIAPINE 25MG TABLET ONE (13:57)
[2019-04-21] MEDS: QUETIAPINE 25MG TABLET PO PRN (14:11)
--- NOTE | 2019-04-21 14:44 | NUR ---
PATIENT GIVEN TIME TO SHOWER, RN STOOD BY WITH DOOR OPEN. PATIENT GIVEN NEW GOWN AND SOCKS, BED LINENS CHANGED. PATIENT BACK IN BED, DENIES FURTHER NEEDS AT THIS TIME.
--- NOTE | 2019-04-21 16:10 | NUR ---
PATIENT SLEEPING, RESPIRATIONS EVEN AND UNLABORED. SITTER AT DOOR.
--- NOTE | 2019-04-21 17:25 | NUR ---
PATIENT UP IN BED, WATCHING TV, DENIES NEEDS AT THIS TIME. INFORMED HER FOOD TRAY IS COMING.
--- NOTE | 2019-04-21 18:10 | NUR ---
PATIENT PROVIDED WITH MEAL TRAY, DENIES FURTHER NEEDS AT THIS TIME.
--- NOTE | 2019-04-21 19:01 | NUR ---
RECEIVED REPORT FROM KELLEY Pitt ASSUMING CARE AT THIS TIME.
--- NOTE | 2019-04-21 19:39 | NUR ---
PT RESTING ON GURNEY WATCHING TV. PT IN DIRECT EYE SITE OF SITTER. PT COMPLIANT WITH ASSESSMENT.
[2019-04-21] MEDS ORDERED: QUETIAPINE 100MG TABLET ONE (20:29)
[2019-04-21] MEDS: QUETIAPINE 100MG TABLET PO SCH (20:31)
--- NOTE | 2019-04-21 20:32 | NUR ---
MEDS ADMIN PER MAR. PT RESTING ON HOSPITAL BED. NADN. PT IN DIRECT EYE SIGHT OF SITTER.
--- NOTE | 2019-04-21 21:25 | NUR ---
PT SLEEPING ON HOSPITAL BED. NADN. PT IN DIRECT SITE OF SITTER.
--- NOTE | 2019-04-21 22:27 | NUR ---
PT SLEEPING ON HOSPITAL BED. NADN. PT IN DIRECT EYE LINE OF SITTER.
--- NOTE | 2019-04-21 23:33 | NUR ---
PT SLEEPING ON HOSPITAL BED. NADN. PT IN DIRECT EYE LINE OF SITTER.
--- NOTE | 2019-04-21 23:49 | NUR ---
REPORT GIVEN TO RICARDO YOON
--- NOTE | 2019-04-22 01:04 | NUR ---
PT RESTING IN BED, PT ROOM SI SECURED AND SITTER IS POSTED AT PT DOOR.
--- NOTE | 2019-04-22 01:44 | NUR ---
PT SLEEPING IN BED, PT ROOM SI SECURED AND SITTER IS POSTED AT PT BEDSIDE.
--- NOTE | 2019-04-22 02:20 | NUR ---
REPORT OF PT FROM KARRIE SILVA AND ASSUMING CARE OF PT AT THIS TIME
--- NOTE | 2019-04-22 02:44 | NUR ---
PT SLEEPING IN [facility] AT THIS TIME WITH SITTER OUTSIDE OF ROOM FOR DIRECT OBSERVATION OF PT. NIXON.
--- NOTE | 2019-04-22 03:48 | NUR ---
PT SLEEPING IN [facility] AT THIS TIME WITH SITTER OUTSIDE OF ROOM FOR DIRECT OBSERVATION OF PT. NIXON.
--- NOTE | 2019-04-22 04:53 | NUR ---
PT SLEEPING IN [facility] AT THIS TIME WITH SITTER OUTSIDE OF ROOM FOR DIRECT OBSERVATION OF PT. NIXON.
--- NOTE | 2019-04-22 06:27 | NUR ---
PT ASLEEP IN [facility] WITH SITTER OUTSIDE OF PT ROOM FOR DIRECT OBSERVATION. PT HAS NO ACUTE DISTRESS NOTED. FOOD TRAY ORDERED FOR MORNING MEAL.
--- NOTE | 2019-04-22 06:50 | NUR ---
REPORT OF PT TO KARRIE FLORES. ALL QUESTIONS ANSWERED.
--- NOTE | 2019-04-22 06:54 | NUR ---
Report from Scott YOON. Pt resting in bed with eyes closed, resp even and unlabored, NADN. Room is secured, sitter within eyesight of pt, all safety measures observed.
--- NOTE | 2019-04-22 08:22 | NUR ---
Pt continues resting in bed with eyes closed, resp even and unlabored, NADN. Room remains secured, sitter within eyesight of pt, all safety measures observed. Breakfast tray delivered to pt's bedside with SI precautions observed.
--- NOTE | 2019-04-22 09:08 | NUR ---
Pt ate all of breakfast tray, now resting in bed, NADN.
--- NOTE | 2019-04-22 10:09 | NUR ---
Santiago RN: coffee provided & additional meal tray ordered at pt's request. Calm & cooperative at this time.
--- NOTE | 2019-04-22 11:50 | NUR ---
Pt ambulatory around unit with steady gait accompanied by sitter per request. Once pt returned to room pt given two meal trays with SI precautions observed as well as coffee per request. Pt eating lunch at this time, denies other needs. Room remains secured, sitter within eyesight of pt, all safety measures observed.
--- NOTE | 2019-04-22 11:56 | NUR ---
Carolina SHOEMAKER at bedside to speak with pt.
--- NOTE | 2019-04-22 13:15 | NUR ---
PT RESTING IN BED IN VIEW OF SITTER. SAFETY MAINTAINED.
--- NOTE | 2019-04-22 13:26 | NUR ---
REPORT TAKEN FROM KARRIE DIAZ.
--- NOTE | 2019-04-22 14:33 | NUR ---
PT REQUESTING PANTS, FEMININE PRODUCTS, WATER, AND IBUPROFEN FOR BACK PAIN. THIS RN LET PT KNOW PANTS WOULD BE A WHILE BEFORE THEY CAME, PROVIDED PT WITH UNDERWEAR AND 2 PADS, WATER, AND WILL SPEAK WITH MD ABOUT IBUPROFEN. PT SAID TO THIS RN, "DO NOT PATRONIZE ME AND ACT LIKE YOU KNOW WHAT I'VE BEEN THROUGH OR THAT YOU'RE BETTER THAN ME." THIS RN EXPLAINED THAT WAS NOT INTENDED. PT SAID, "YES YOU WERE" AND WALKED AWAY.
[2019-04-22] MEDS ORDERED: IBUPROFEN 600 MG TABLET ONE (14:47)
--- NOTE | 2019-04-22 14:52 | NUR ---
PT MEDICATED PER EMAR. WALKING AROUND IN ROOM. ROOM SECURE. SITTER IN HALLWAY. ASKING TO GO FOR A WALK. THIS RN LET PT KNOW THAT IS NOT AN AVAILABLE OPTION AT THIS TIME BUT THAT THIS RN WILL HELP WITH THAT SOON ABLE TO.
[2019-04-22] MEDS ORDERED: IBUPROFEN 600 MG TABLET PO ONE (15:00)
--- NOTE | 2019-04-22 15:02 | NUR ---
PANTS PROVIDED TO PT.
--- NOTE | 2019-04-22 15:11 | NUR ---
PT STATES NEITHER OPTION OF PANTS FITS HER. THIS RN EXPLAINED THESE ARE HER OPTIONS. AMBULATING IN ROOM. ROOM SECURE. SITTER IN HALLWAY.
--- NOTE | 2019-04-22 15:35 | NUR ---
PT FOUND TO BE AMBULATING FAR INTO HALLWAY LOOKING INTO OTHER ROOMS. THIS RN AND SITTER REMINDED PT OF NEED TO STAY IN HER ROOM UNLESS AMBULATING WITH STAFF. PT RETURNED TO ROOM. ROOM SECURE. SITTER IN HALLWAY.
--- NOTE | 2019-04-22 15:41 | NUR ---
PT REQUESTING TO SPEAK WITH ICU SPECIALIST. ICU SPECIALIST INFORMED.
--- NOTE | 2019-04-22 16:00 | NUR ---
DINNER TRAY ORDERED FOR PT.
--- NOTE | 2019-04-22 16:19 | NUR ---
THIS RN WENT ON A 1 LAP WALK AROUND ER AT THIS TIME. PT REQUESTING SEROQUEL. PT NOW BACK IN ROOM. ROOM SECURE. SITTER AT BEDSIDE.
[2019-04-22] MEDS ORDERED: QUETIAPINE 25MG TABLET ONE (16:21)
[2019-04-22] MEDS: QUETIAPINE 25MG TABLET PO PRN (16:23)
--- NOTE | 2019-04-22 16:23 | NUR ---
PT MEDICATED PER EMAR.
--- NOTE | 2019-04-22 16:43 | NUR ---
PT ON PHONE AT THIS TIME.
--- NOTE | 2019-04-22 16:52 | NUR ---
PT AMBULATED WITH STEADY GAIT FOR 1 LAP AROUND ER WITH SITTER. NOW BACK IN ROOM. ROOM SECURE. NADN. SITTER IN HALLWAY.
--- NOTE | 2019-04-22 17:18 | NUR ---
PT PROVIDED WITH DINNER TRAY.
--- NOTE | 2019-04-22 17:28 | NUR ---
PT CONTINUES TO WALK HALLWAYS WITH SITTER.
--- NOTE | 2019-04-22 18:21 | NUR ---
PT BACK IN ROOM PACING BACK AND FORTH. SITTER AT BEDSIDE. ROOM SECURE. NIXON.
--- NOTE | 2019-04-22 18:39 | NUR ---
PT WALKING IN HALLWAYS AGAIN. PER COVERING MACHINE OPERATOR, PT FOUND TO BE LOOKING INTO OTHER PEOPLE'S ROOMS. THIS RN LET PT KNOW THAT WALKING IS GOING TO BE LIMITED TO A FEW TIMES A SHIFT AND THAT LOOKING INTO PEOPLE'S ROOMS IS INAPPROPRIATE. PT RESPONDED BY SAYING "HOW LONG HAVE YOU BEEN WORKING BECAUSE I'VE BEEN WORKING A HELL OF A LOT MORE THAN YOU AND I KNOW WHAT I'M DOING. I'M ALLOWED TO WALK MUCH I WANT." PT CURRENTLY IN ROOM REQUESTING COFFEE. SITTER IN HALLWAY. ROOM SECURE.
--- NOTE | 2019-04-22 18:50 | NUR ---
REPORT GIVEN TO KARRIE HARRIS.
--- NOTE | 2019-04-22 19:07 | NUR ---
ASSUMED CARE OF PT
--- NOTE | 2019-04-22 20:03 | NUR ---
pt resting in view of sitter. safety maintained.
[2019-04-22] MEDS ORDERED: QUETIAPINE 100MG TABLET ONE (20:32)
[2019-04-22] MEDS: PRAZOSIN 2 MG CAPSULE PO SCH (20:42)
[2019-04-22] MEDS: QUETIAPINE 100MG TABLET PO SCH (20:42)
--- NOTE | 2019-04-22 20:50 | NUR ---
Pt medicated w/ nighttime meds per JUL. given PB/crackers/water. VSS. denies pain/SI/HI at this time. calm, cooperative. sitter in place in view of pt. safety maintained.
--- NOTE | 2019-04-22 21:52 | NUR ---
pt resting in view of sitter, safety maintained.
--- NOTE | 2019-04-22 22:07 | NUR ---
ASSUMED CARE OF PT AT THIS TIME
--- NOTE | 2019-04-23 01:57 | NUR ---
ASSUMING CARE OF PT AT THIS TIME. PT ASLEEP IN [facility] AT THIS TIME;
--- NOTE | 2019-04-23 02:35 | NUR ---
PT ASLEEP IN [facility] AT THIS TIME; NIXON. SITTER OUTSIDE OF PT ROOM FOR DIRECT OBSERVATION OF PT.
--- NOTE | 2019-04-23 03:50 | NUR ---
PT ASLEEP IN [facility] AT THIS TIME; NIXON. SITTER OUTSIDE OF PT ROOM FOR DIRECT OBSERVATION OF PT.
--- NOTE | 2019-04-23 04:10 | NUR ---
PT ASLEEP IN [facility] AT THIS TIME; NIXON. SITTER OUTSIDE OF PT ROOM FOR DIRECT OBSERVATION OF PT.
--- NOTE | 2019-04-23 05:43 | NUR ---
PT ASLEEP IN [facility] AT THIS TIME; NIXON. SITTER OUTSIDE OF PT ROOM FOR DIRECT OBSERVATION OF PT.
--- NOTE | 2019-04-23 06:03 | NUR ---
PT VSS AND UPDATED IN EMR. DIET TRAY ORDERED AT THIS TIME FOR PT MORNING MEAL.
--- NOTE | 2019-04-23 06:29 | NUR ---
PT ASLEEP IN [facility] AT THIS TIME; NIXON. SITTER OUTSIDE OF PT ROOM FOR DIRECT OBSERVATION OF PT.
--- NOTE | 2019-04-23 06:47 | NUR ---
Received report from KARRIE Chavez. All questions answered. Assuming care of pt at this time.
--- NOTE | 2019-04-23 07:12 | NUR ---
Pt resting supine on hospital bed with eyes closed and unlabored respirations with even chest rise and fall. NADN. Room remains secured for SI/HI. Sitter near doorway in direct line of sight for observation. No needs expressed at this time.
--- NOTE | 2019-04-23 07:28 | NUR ---
Obtained vital signs, performed physical assessment and suicide reassessment. NADN. No needs expressed at this time. Pt continues resting on hospital bed. Sitter near doorway in direct line of sight for observation.
--- NOTE | 2019-04-23 08:53 | NUR ---
Julian lamb in ED - 04/23/19 at 0903 by ROSE MARY REPORT GIVEN TO THE ONCOMING RN.
--- NOTE | 2019-04-23 09:12 | NUR ---
LATE NOTE ENTRY FOR 0830: Pt provided breakfast tray. No other needs expressed at this time. Sitter near doorway in direct line of sight for observation.
--- NOTE | 2019-04-23 09:12 | NUR ---
Pt ate 100% of breakfast tray. Pt lays supine on hospital bed with eyes closed. Pt has unlabored respirations with even chest rise and fall. NADN. No needs expressed. Sitter near doorway in direct line of sight for observation.
--- NOTE | 2019-04-23 10:09 | NUR ---
Pt resting on hospital bed with eyes closed. Pt has unlabored respirations with even chest rise and fall. NADN. No needs expressed. Sitter near doorway in direct line of sight for observaiton.
--- NOTE | 2019-04-23 10:56 | NUR ---
PT REPORT FROM KARRIE ESPINOSA. PT CARE TO BE ASSUMED.
--- NOTE | 2019-04-23 10:58 | NUR ---
PT DOZING, CHEST RISE NOTED. SITTER OUTSIDE ROOM.
--- NOTE | 2019-04-23 11:54 | NUR ---
PT WALKING LAPS IN ED HALLWAYS W/ SITTER; GAIT STEADY.
--- NOTE | 2019-04-23 12:25 | NUR ---
PT SITTING ON BS DRINKING COFFEE. SITTER OUTSIDE ROOM.
--- NOTE | 2019-04-23 12:29 | NUR ---
LUNCH TRAY ORDERED.
--- NOTE | 2019-04-23 13:20 | NUR ---
LUNCH TRAY DELIVERED.
--- NOTE | 2019-04-23 13:20 | NUR ---
Julian lamb in ED - 04/23/19 at 1321 by MASHA LORI VELEZ.
--- NOTE | 2019-04-23 13:59 | NUR ---
PT STANDING IN HER ROOM, DRINKING COFFEE. INFORMED SITTER THAT PT SHOULD GET DECAF COFFEE INSTEAD OF REGULAR. PT & SITTER INFORMED THAT HER WALKS ARE CURRENTLY LIMITED TO THE IMMEDIATE ANDRADE AREA (NOT AROUND THE ED).
--- NOTE | 2019-04-23 15:00 | NUR ---
PT SITTING ON BED, REQUESTED NAIL CLIPPERS - REQUEST DENIED. SITTER OUTSIDE ROOM
--- NOTE | 2019-04-23 15:05 | NUR ---
HOSPITAL SOCKS PROVIDED TO PT, PER HER REQUEST
--- NOTE | 2019-04-23 15:18 | NUR ---
PT WALKING LAPS AROUND WEST END OF ED ACCOMPANIED BY SITTER. GAIT STEADY.
--- NOTE | 2019-04-23 15:48 | NUR ---
WATER & JOSEPH CRACKERS PROVIDED TO PT. PT WALKING AROUND IN ED ROOM.
--- NOTE | 2019-04-23 17:13 | NUR ---
DINNER TRAY ORDERED. PT STANDING IN ROOM. SITTER OUTSIDE ROOM.
--- NOTE | 2019-04-23 17:30 | NUR ---
DINNER TRAY DELIVERED.
--- NOTE | 2019-04-23 17:33 | NUR ---
pleating machine operator note: Pt provided dinner tray with SI precautions observed.
--- NOTE | 2019-04-23 17:40 | NUR ---
PT TO PHONE AT DC DESK, ACCOMPANIED BY SITTER.
--- NOTE | 2019-04-23 17:41 | NUR ---
PT RETURNED TO ROOM. AMBULATORY W/ STEADY GAIT
--- NOTE | 2019-04-23 17:43 | NUR ---
[facility] CONSULT IN PROGRESS
--- NOTE | 2019-04-23 17:49 | NUR ---
PT REPORT TO BREAK RN: KELLEY Arroyo RN. PT CARE TRANSFERRED.
--- NOTE | 2019-04-23 18:11 | NUR ---
PATIENT OUT OF BED, IN ANDRADE ASKING TO WALK. EXPLAINED TO PATIENT THAT A SITTER NEEDS TO BE WITH HER, AND THE SITTER ASSIGNED TO HER ROOM IS ALSO WATCHING ANOTHER PATIENT, OS SHE WILL NOT BE ABLE TO GO FOR A WALK. PATIENT VERBALIZED UNDERSTANDING AND WAS COOPERATIVE.
--- NOTE | 2019-04-23 18:33 | NUR ---
PT REPORT FROM KELLEY Arroyo RN. PT CARE RESUMED.
--- NOTE | 2019-04-23 19:12 | NUR ---
PT CONFRONTATIONAL. CALLED THIS RN "THE GREAT WHITE BITCH". REMINDED PT OF HER CURRENTLY SET LIMITS: MAY WALK IN IMMEDIATE HALLWAY W/OUT SITTER (SITTER IN HALLWAY), MAY NOT USE THE PHONE FOR A WHILE SHE'S BEEN REQUESTING AND BEEN GETTING PHONE ACCESS APPROXIMATELY HOURLY. PT INVADING THIS RN'S PERSONAL SPACE, STATED "YOU ARE WRONG", "YOU NEED TO BACK DOWN". PT REFUSED MY OFFER TO GET WOOD PATTERNMAKER APPRENTICE. PT STATES "YOU CAN GET SECURITY". ASKED PT IF SHE REALLY WANTED SECURITY, PT REPLIED "DO YOU?" MY REPLY: "NO, BUT I'LL BE HAPPY TO CALL THEM." INFORMED PT THAT I WOULD BE GETTING THE WOOD PATTERNMAKER APPRENTICE.
--- NOTE | 2019-04-23 19:19 | NUR ---
HAWK, EVENTS TRAFFIC CONTROLLER CONSULTED. [facility]WK AGREES WITH CURRENT PLAN; ADVISED CALLING SECURITY PRN.
--- NOTE | 2019-04-23 19:25 | NUR ---
PT NOW SITTING ON BED. SITTER OUTSIDE ROOM.
[2019-04-23] MEDS ORDERED: QUETIAPINE 100MG TABLET ONE (20:05)
[2019-04-23] MEDS: QUETIAPINE 100MG TABLET PO SCH (20:12)
--- NOTE | 2019-04-23 20:14 | NUR ---
SEROQUEL GIVEN PER EMAR ORDER
--- NOTE | 2019-04-23 20:21 | NUR ---
PT WANDING IN THE ANDRADE BY DC AREA. PT ACCOMPANIED BACK TO HER ROOM. INFORMED SITTER THAT PT MAY NOT GO INTO THE DC AREA.
--- NOTE | 2019-04-23 20:53 | NUR ---
MINIPRES ORDERED FROM PHARMACY
[2019-04-23] MEDS: PRAZOSIN 2 MG CAPSULE PO SCH (21:28)
--- NOTE | 2019-04-23 21:32 | NUR ---
MNIPRES CAPSULE GIVEN PER EMAR. JOSEPH CRACKERS AND PEANUT BUTTER PROVIDED, PER PT REQUEST. PT NOW COOPERATIVE. SITTER OUTSIDE ROOM
--- NOTE | 2019-04-23 22:14 | NUR ---
PT REQUESTING VALCYCLOVIR. INFORMED PT THAT MEDICATION HAS NOT BEEN ORDERED FOR HER. PT REPORTS WHEN SHE WAS AT THE HOSPTIAL IN [facility], THEY FOUND A BACTERIAL OR VIRAL INFECTION. WILL INFORM ERP
--- NOTE | 2019-04-23 22:48 | NUR ---
PT DOING LAPS AROUND ED ANDRADE W/ SITTER; GAIT STEADY. DR GALLAGHER CONSULTED RE: PT'S ACYCLOVIR AND ANTIBIOTIC REQUEST; NO NEW MEDICATION ORDERS AT THIS TIME.
--- NOTE | 2019-04-23 22:55 | NUR ---
PT USING PHONE AT DC DESK.
--- NOTE | 2019-04-23 23:00 | NUR ---
PT NOW REQUESTING TYLENOL AND NICOTINE PATCH.
--- NOTE | 2019-04-23 23:05 | NUR ---
PT REPORT TO KARRIE TYSON. PT CARE TRANSFERRED.
--- NOTE | 2019-04-23 23:18 | NUR ---
Report received on patient; assumed care. Resting comfortably on hospital bed; no needs. Waiting on hospital bed at [facility].
--- NOTE | 2019-04-24 00:30 | NUR ---
Patient standing at the doorway of her room asking multiple questions. This RN attempted to answer as many questions as possible. Patient still concerned and asking for motel food service supervisor. Airplane Mechanic Apprentice notified.
--- NOTE | 2019-04-24 01:21 | NUR ---
Patient continuously attempting to walk the halls; she has been reminded numerous times to stay in her room. Patient requesting antivirals and antibiotics because she is "septic." MD aware of situation and no sepsis protocol orders. Patient appears nontoxic upon assessment.
[2019-04-24] MEDS ORDERED: ACETAMINOPHEN 500 MG TABLET PO ONE (01:30)
--- NOTE | 2019-04-24 02:54 | NUR ---
BREAK RN: PT SLEEPING. RESPIRATIONS EVEN AND UNLABORED. ROOM REMAINS SECURE, SITTER OUTSIDE DOOR.
[2019-04-24] MEDS ORDERED: ACETAMINOPHEN 500 MG TABLET ONE (03:33)
--- NOTE | 2019-04-24 04:23 | NUR ---
Patient sleeping. Respirations even and unlabored.
--- NOTE | 2019-04-24 05:35 | NUR ---
Patient cooperative and sitting in bed. Sitter at door.
--- NOTE | 2019-04-24 06:45 | NUR ---
Patient cooperative and resting in bed. Sitter at the door.
--- NOTE | 2019-04-24 07:06 | NUR ---
BEDSIDE REPORT FROM TC YOON, PT SLEEPING IN BED WITH SITTER AT DOORWAY. AWAITING PSYCH FACILITY PLACEMENT.
--- NOTE | 2019-04-24 08:05 | NUR ---
PT SLEEPING IN HOSPITAL BED WITH SITTER AT BEDSIDE. NO NEEDS AT THIS TIME
--- NOTE | 2019-04-24 09:04 | NUR ---
PT RESTING IN HOSPITAL BED WITH SITTER AT BEDSIDE. PT GIVEN BREAKFAST TRAY, CALM AND COOPERATIVE. NO NEEDS AT THIS TIME
--- NOTE | 2019-04-24 10:07 | NUR ---
PT SLEEPING IN HOSPITAL BED, SITTER AT DOORWAY. NO NEEDS AT THIS TIME.
[2019-04-24 10:40] VITALS: BP 109/75
--- NOTE | 2019-04-24 11:10 | NUR ---
PT AMBULATING IN HALLWAY WITH SITTER
--- NOTE | 2019-04-24 11:30 | NUR ---
REPORT TO BENITO KEARNEY PT TO BE TRANSPORTED AROUND 1PM [facility]IA [facility]
--- NOTE | 2019-04-24 12:06 | NUR ---
PT SLEEPING IN HOSPITAL BED, NO NEEDS AT THIS TIME. SITTER AT DOORWAY
== END 2019-04-24 14:04 ==
LOC: ED 06:11
DX: F23 Brief psychotic disorder (principal); F22 Delusional disorders
CPT/HCPCS: 36415; 80053; 80307; 84439; 84443; 84703; 85025; 99284; 99285

== ENCOUNTER 2019-04-24 15:44 | Emergency (ER) | payer MEDICAID ==
[~2019-04-24] VITALS: Ht 165.1 cm; Wt 87.7 kg
[2019-04-24 15:51] VITALS: BP 110/76
--- NOTE | 2019-04-24 15:55 | NUR ---
PT HERE FOR MEDICAL CLEARANCE DUE TO ELEVATED TEMP OF 100.7 AND BACK PAIN AT [facility]. PT REPORTS SYMPTOM ONSET 24 HOURS AGO. PT DENIES SI/HI. PT REPROTS SHE WOULD LIKE TO GO BACK TO [facility] HER PLACE IS BEING HELD. PT RESTING IN ROOM NADN. GIVEN 1000MG OF TYLENOL EN ROUTE. VSS
--- NOTE | 2019-04-24 16:05 | NUR ---
PT GIVEN MEAL TRAY.
[2019-04-24 16:26] LABS: MICROSCOPIC INDICATED
[2019-04-24 16:36] LABS: CULTURE INDICATED? YES
[2019-04-24 16:45] LABS: RAPID INFLUENZA A Negative (Negative); RAPID INFLUENZA B Negative (Negative)
--- NOTE | 2019-04-24 17:21 | NUR ---
REPORT CALLED TO BENITO YOON AT [facility].
--- NOTE | 2019-04-24 18:02 | NUR ---
[facility] TRANSPORTING PT NOW TO [facility].
== END 2019-04-24 23:29 ==
LOC: ED 23:23
DX: J06.9 Acute upper respiratory infection, unspecified (principal)
CPT/HCPCS: 81001; 87086; 87400; 99285

== ENCOUNTER 2020-06-19 20:26 | Emergency (ER) | payer MEDICAID ==
--- NOTE | 2020-06-19 20:41 | NUR ---
INITIAL PT CONTACT. PT PRESENTS TO ED WITH GENERALIZED VAGUE COMPLAINTS OF "NOT FEELING WELL AND ALL OVER MUSCLE/BODY ACHES. I THINK I MAY BE SUFFERING FROM PSYCOSIS". PT VERY SLOW TO RESPOND TO ALL ASSESSMENT QUESTIONS AND VAGUE WITH ANSWERS. PT PACING AROUND ROOM. AWAITING ERP. CALL LIGHT IN REACH.
--- NOTE | 2020-06-19 21:18 | NUR ---
ATTEMPT TO OBTAIN URINE SAMPLE. "I CAN'T DO THAT RIGHT NOW, I JUST NEED TO SIT ON THE BED AND GET MY ENERGY BACK, I JUST AM SO EXHAUSTED AND CANT GET OFF THE BED". WILL ATTEMPT AGAIN LATER.
[2020-06-19 21:36] LABS: BASOPHILS % (AUTO) 1 % (0-1); EOSINOPHILS % (AUTO) 2 % (1-7); LYMPHOCYTES % (AUTO) 37 % (22-44); MEAN CORPUSCULAR HEMOGLOBIN 29.1 pg (27.0-34.8); MEAN CORPUSCULAR HGB CONC 34.3 g/dL (32.4-35.8); MEAN PLATELET VOLUME 6.9 fL (7.4-10.4); MONOCYTES % (AUTO) 8 % (2-9); NEUTROPHILS % (AUTO) 53 % (42-75); PLATELET COUNT 377 x10^3/uL (130-400); RED BLOOD COUNT 4.47 x10^6/uL (3.82-5.3); RED CELL DISTRIBUTION WIDTH 14.2 % (9.6-15.2)
[2020-06-19 21:41] LABS: MD NO
[2020-06-19 21:45] LABS: ALANINE AMINOTRANSFERASE 32 U/L (12-78); ALBUMIN 3.6 g/dL (3.4-5.0); ANION GAP 6 mmol/L (5-15); CALCIUM 8.8 mg/dL (8.5-10.1); CHLORIDE 110 mmol/L (98-107)
[2020-06-19 21:56] LABS: ALKALINE PHOSPHATASE 80 U/L (45-117); BILIRUBIN,TOTAL 0.5 mg/dL (0.2-1.0); CREATININE 0.93 mg/dL (0.55-1.02); TOTAL PROTEIN 7.5 g/dL (6.4-8.2)
[2020-06-19 22:00] LABS: SALICYLATE LEVEL < 1.7 mg/dL (2.8-20.0)
--- NOTE | 2020-06-19 22:27 | NUR ---
PT AMBULATORY WITH STEADY GAIT TO BATHROOM TO PROVIDE URINE SAMPLE. PT RETURNED TO ROOM, SITTING UPRIGHT ON NIXON [place], VSS. PT DENIES ANY NEEDS AT THIS TIME. CALL LIGHT AND PERSONAL BELONGINGS WITHIN REACH.
[2020-06-19 22:50] LABS: AMPHETAMINE SCREEN, URINE Negative (Negative); BARBITURATE SCREEN, URINE Negative (Negative); BENZODIAZEPINE SCREEN, URINE Negative (Negative); CANNABINOID SCREEN, URINE Negative (Negative); COCAINE SCREEN, URINE Negative (Negative); METHADONE SCREEN, URINE Negative (Negative); OPIATE SCREEN, URINE Negative (Negative)
--- NOTE | 2020-06-19 23:22 | NUR ---
DISCUSSION WITH PT'S FATHER OVER THE PHONE REGARDING PT AND PRIOR MEDICAL HX. ACCORDING TO PT'S FATHERS "SHE WAS JUST AT [facility] FOR 7 MONTHS FOR ALL THIS PSYCH STUFF SHE HAS GOING ON, SHES SCHIZOPHRENIC AND HAS PTSD. JUST GOT D/C FROM THERE 1.5 DAYS AGO AND THEY DIDN'T GIVE HER THE PROPER MEDICATIONS, SHE NEEDS TO GO BACK THERE AND GET MORE TX. SHE CAN'T GO HOME. SHE WILL JUST KEEP CALLING 911, IT'S A PART OF HER DISEASE." ERP AWARE.
--- NOTE | 2020-06-19 23:24 | NUR ---
ERP AT BEDSIDE
[2020-06-20 00:02] VITALS: BP 176/70
--- NOTE | 2020-06-20 00:02 | NUR ---
Patient given discharge instructions and they have confirmed that they understand the instructions. Patient ambulatory with steady gait. Pt provided taxi voucher home upon request .
[2020-06-21] MEDS ORDERED: QUET400T4 PO (02:49)
== END 2020-06-20 00:04 | disposition home or self-care (01) ==
LOC: ED 20:56
DX: F31.61 Bipolar disorder, current episode mixed, mild (principal); R53.1 Weakness; R00.0 Tachycardia, unspecified; F17.200 Nicotine dependence, unspecified, uncomplicated; Z72.9 Problem related to lifestyle, unspecified
CPT/HCPCS: 36415; 80053; 80299; 80307; 80320; 80329; 84443; 84703; 85025; 93005; 99284; G0480

== ENCOUNTER 2020-06-20 18:04 | Emergency (ER) | payer MEDICARE, MEDICAID ==
[~2020-06-20] VITALS: Ht 167.6 cm; Wt 72.8 kg
--- NOTE | 2020-06-20 18:40 | NUR ---
PT REFUSING TO CHANGE INTO GOWN. PA INGRID BEDSIDE.
--- NOTE | 2020-06-20 18:40 | NUR ---
FEELS LIKE SHE NEEDS TO BE CHECKED OUT. PT BIB BY EMS. PT IS UNABLE TO REALLY SPECIFY WHY SHE FEELS UNWELL. PT MENTIONED FUNGAL INFECTION IN THE GROIN, GENERAL BODY ACHES. PT DENIES SI OR HI. PT SPEECH DISJOINTED AND UNABLE TO FOCUS ON THE CONVERSATION. PT DENIES RECREATIONAL DRUG USE. LIX, SYSTEMS MANAGER BEDSIDE.
--- NOTE | 2020-06-20 18:42 | NUR ---
PT WAS AT [facility] ED YESTERDAY FOR SIMILAR COMPLAINT. PT IS A PT AT [facility] [employer]. PT STATES SHE DID CALL TODAY AND LEFT A MESSAGE FOR HER ENGINE INSPECTOR.
--- NOTE | 2020-06-20 19:18 | NUR ---
PATIENT STATES SHE HAS BEEN HAVING SI. MD WAS IN ROOM ASKING QUESTIONS AND RN AT BEDSIDE DURING ASSESSMENT. PATIENT VERY VAGUE ON EXPLANATION ON REASONING FOR COMING TO ER. MD LEAVES ROOM AND PATIENT ASKS "AM I GOING TO GET ADMITTED OR GET BLOOD WORK DONE?". RN ASKS WHAT IS CAUSING HER TO FEEL LIKE SHE NEEDS ADMISSION TO THE HOSPITAL OR BLOOD WORK?". PT STATES "WELL...UH... UMM... WELL... I JUST FEEL LIKE I NEED A PSYCH EVAL AND GO TO [facility]". RN ASKED IF PATIENT IS HAVING ANY THOUGHTS OF HURTING HERSELF AND SHE REPSONDED "WEL.. UMM... YA I HAVE HAD THAT TODAY. I HAVE BEEN HAVING SUICIDAL IDEATION TODAY". RN ASKED IF SHE HAD A PLAN TO HARM HERSELF. "WELL... UMM... UMM.... NO NOT RIGHT NOW. I COULDNT THINK OF ANYTHING. BUT I... UMM... AM HAVING SUICIDAL IDEATION". PATIENT DENIES HI. STATES SHE FEELS LIKE SHE NEEDS PSYCH EVAL MULTIPLE TIMES. VERY VAGUE WITH EXPLANATION ON REASON FOR COMING TO ER. SHE WAS AT [facility] LAST NIGHT WELL. IN REPORT FROM JAS SHE STATED PT DENIED SI/HI. PATIENT STATES MULTIPLE TIMES "I JUST WANT TO DO THE RIGHT THING, I THINK IM IN PSYCHOSIS". RN ASKED IF SHE HAD ANY PSYCH HISTORY. PATIENT STATES "NATE BEEN WRONGFULLY DIAGNOSED BUT I JUST HAVE PTSD AND IM HAVING OPSYCHOSIS FROM MY PTSD AND I NEED TO BE ADMITTED AND GO TO [facility]". DR. MARTINO NOTIFIED. AIR TECHNICIAN IMMEDIATELY TO BEDSIDE
--- NOTE | 2020-06-20 20:47 | NUR ---
RN IN TO REVIEW DC INSTRUCTIONS WITH PATIENT. CARMELITA GALLOWAY, CALLED FATHER PER SW REPORT AND SPOKE WITH HIM REGARDING PATIENT'S INTERMITTENT SI COMPLAINTS AND HER RESOURCES OUTPT. PT STATES SHE IS ADVOCATING FOR HERSELF AND FEELS LIKE SHE NEEDS TO BE A NHAMS. SHE DENIES SI AT THIS TIME BUT STATES "I DO NOT FEEL SAFE GOING HOME RIGHT NOW WITH THE STATE I AM IN". PATIENT DOES HAVE DELAYED ANSWERING OF QUESTIONS AND LOSES TRACK OF CONVERSATION. IN NAD. WILL OBTAIN TELE-PSYCH CONSULT. PATIENT APPRECIATIVE TO STAFF FOR THIS.
[2020-06-20 21:16] LABS: BASOPHILS % (AUTO) 1 % (0-1); EOSINOPHILS % (AUTO) 2 % (1-7); LYMPHOCYTES % (AUTO) 39 % (22-44); MEAN CORPUSCULAR HEMOGLOBIN 29.4 pg (27.0-34.8); MEAN CORPUSCULAR HGB CONC 34.2 g/dL (32.4-35.8); MEAN PLATELET VOLUME 7.1 fL (7.4-10.4); MONOCYTES % (AUTO) 6 % (2-9); NEUTROPHILS % (AUTO) 51 % (42-75); PLATELET COUNT 409 x10^3/uL (130-400); RED BLOOD COUNT 4.68 x10^6/uL (3.82-5.3); RED CELL DISTRIBUTION WIDTH 14.9 % (9.6-15.2)
--- NOTE | 2020-06-20 21:16 | NUR ---
PATIENT AMBULATED TO BATHROOM. STEADY GAIT. OBJECTIVELY SEEMS TO BE HAVING DIFFICULTY PROCESSING COMMANDS THAT ARE ASKED OF HER. LIKE IF SHE WANTS HER PURSE ON THE COUNTER OR ON THE BED. PATIENT WILL STARE AT RN FOR ~ 30 SECS AND SAY "WHAT WAS THAT MA'AM?" TELE PSYCH COMPUTER IN ROOM AND SET UP
[2020-06-20 21:25] LABS: ALBUMIN 3.7 g/dL (3.4-5.0); ANION GAP 8 mmol/L (5-15); CALCIUM 8.7 mg/dL (8.5-10.1); CHLORIDE 110 mmol/L (98-107); CREATININE 0.88 mg/dL (0.55-1.02)
[2020-06-20 21:26] LABS: SALICYLATE LEVEL < 1.7 mg/dL (2.8-20.0)
[2020-06-20 21:28] LABS: MD NO
[2020-06-20 21:31] LABS: MICROSCOPIC INDICATED
[2020-06-20 21:38] LABS: AMPHETAMINE SCREEN, URINE Negative (Negative); BARBITURATE SCREEN, URINE Negative (Negative); BENZODIAZEPINE SCREEN, URINE Negative (Negative); CANNABINOID SCREEN, URINE Negative (Negative); COCAINE SCREEN, URINE Negative (Negative); METHADONE SCREEN, URINE Negative (Negative); OPIATE SCREEN, URINE Negative (Negative)
--- NOTE | 2020-06-20 22:45 | NUR ---
TELE PSYCH IN PROGRESS
--- NOTE | 2020-06-20 23:46 | NUR ---
PATIENT STATES "IS THERE A DIFFERENT PSYCHIATRIST I COULD TALK TO?" PATIENT STATES SHE DIDNT FEEL LIKE THE CONVERSATION WENT WELL WITH TELE-PSYCH. WAITING TO HEAR FOR THEIR RECOMMENDATIONS FOR CARE AFTER TELE PSYCH. IN NAD. PATIENT STATES SHE WOULD RATHER WAIT FOR PSYCHIATRIST IN THE MORNING [id number] "DEPENDING ON THE FEEDBACK THEY GIVE"
--- NOTE | 2020-06-21 00:25 | NUR ---
PATIENT OFFERED BATHROOM - DECLINED AT THIS TIME. OFFERED SNACK AND WATER. PATIENT REQUESTED WATER. WATER PROVIDED. SAFETY MAINTAINED. DR. MARTINO AND RN DO NOT FEEL LIKE PATIENT NEEDS TO HAVE 1:1 AT THIS TIME. CONTINUES TO DENY SI/HI AT THIS CURRENT TIME.
--- NOTE | 2020-06-21 01:20 | NUR ---
patient sitting up in bed. declares no needs at this time. will continue to monitor. safety maintained. 1:1 sitter in view of patient.
--- NOTE | 2020-06-21 02:35 | NUR ---
Patient changed into hospital gown. All belongings including patient purse placed in personal belonging bag and put in the cabinet. Sitter present
[2020-06-21] MEDS ORDERED: QUET400T4 PO (02:49)
[2020-06-21] MEDS ORDERED: QUETIAPINE 100MG TABLET ONE (02:52)
--- NOTE | 2020-06-21 02:52 | NUR ---
PATIENT REQUESTING HER 400MG SEROQUEL AND 1MG ATIVAN AT THIS TIME. RN NOTIFIED PATIENT OF TIME IS 0300 AM AND PATIENT STATES "WELL I TAKE IT AT 7 IN THE EVENING AND I NEED MY MEDS". PATIENT NEVER MENTIONED THESE MEDS AT 1900.
[2020-06-21] MEDS ORDERED: LORazepam 1MG TABLET ONE ×3 (02:53→21:05)
--- NOTE | 2020-06-21 02:54 | NUR ---
task rn: pt medicated per . resting on chayito sitter in line of sight, si precautions in place.
--- NOTE | 2020-06-21 02:57 | NUR ---
packet faxed to [facility] and [facility].
[2020-06-21] MEDS ORDERED: LORazepam 1MG TABLET PO ONE (03:00)
--- NOTE | 2020-06-21 04:00 | NUR ---
PATIENT SITTING UP IN BED. DECLINED A HOSPITAL BED. DECLINED SNACKS AT THIS TIME. REQUESTED WATER. A&OX4. WILL CONTINUE TO MONITOR. 1:1 IN VIEW OF PATIENT. SAFETY MAINTAINED.
--- NOTE | 2020-06-21 05:00 | NUR ---
PATIENT DROWSY. NOTICEABLY NODDING OFF TO SLEEP BUT OPENING EYES SPONTANEOUSLY OFF AND ON. LAST HR DOCUMENTED 116 PATIENT STATES SHE WAS HAVING MILD ANXIETY. WILL RECHECK ONCE ATIVAN HAS PEAKED. WILL CONTINUE TO MONITOR. 1:1 IN VIEW OF PATIENT. SAFETY MAINTAINED.
--- NOTE | 2020-06-21 05:57 | NUR ---
patient requesting a snack. RN notified patient that i ordered her a breakfast tray that will come soon but patient is extremely drowsy at this time and RN recommended and encouraged patient to get some rest for her psych eval later this morning. patient stated she agreed and instead would try to get some rest. lights dimmed for sleep promotion. she declined being repositioned or having HOB lowered and states "when im in the hospital i always sleep sitting up like this". water provided.
--- NOTE | 2020-06-21 06:49 | NUR ---
patient continues to nod off to sleep and then trying to keep eyes open. requesting pillow. RN in to room again to encourage patient to sleep. she requested lashonad crackers again and these were provided. 1:1 sitter in view of patient. safety maintained. will continue to monitor
--- NOTE | 2020-06-21 07:10 | NUR ---
report given to Olesya YOON
--- NOTE | 2020-06-21 07:27 | NUR ---
Pt resting, eyes closed, even respiratory rate and effort. sitter outside room.
--- NOTE | 2020-06-21 09:21 | NUR ---
Owen Porter [phone] primary contact
--- NOTE | 2020-06-21 09:24 | NUR ---
Pt arousable for a few minutes, sitter outside room. provided warm blanket. refuses food at this time.
--- NOTE | 2020-06-21 10:10 | NUR ---
Spoken with father German. He would like a phone call an hour ahead of time if patient is to be discharged. Pt calm, cooperative and resting with eyes closed.
--- NOTE | 2020-06-21 11:45 | NUR ---
Pt resting, supine, even respiratory rate and effort. Sitter outside room.
--- NOTE | 2020-06-21 12:21 | NUR ---
Carolina Barrow Worker at [facility], pt calm and cooperative. Sitter outside room.
--- NOTE | 2020-06-21 13:10 | NUR ---
Pt eating lunch. Pt states she will be admitted and sent to [facility]
--- NOTE | 2020-06-21 13:50 | NUR ---
Pt calm, cooperative, sitter outside of room. Pt denies any needs at this time. Pt ispenind tranfer to [facility]
--- NOTE | 2020-06-21 15:28 | NUR ---
Sitter outside room. Pt sitting up. Refuses TV. Awaiting transfer to [facility].
--- NOTE | 2020-06-21 18:11 | NUR ---
Pt up to phone to call father. sitter outside of room.
--- NOTE | 2020-06-21 19:06 | NUR ---
REPORT FROM CHANTEL YOON
--- NOTE | 2020-06-21 20:07 | NUR ---
PATIENT AMBULATED TO RESTROOM WITHOUT ASSISTANCE, RETURNED TO ROOM WITHOUT INCIDENT. NAD, VSS, SITTER WITHIN LINE OF SIGHT, NO NEEDS AT THIS TIME. WILL CONTINUE TO MONITOR.
[2020-06-21] MEDS ORDERED: LORazepam 2 MG/ML, 1ML IVPush ONE (21:00)
[2020-06-21] MEDS ORDERED: QUETIAPINE 100MG TABLET PO SCH (21:00)
--- NOTE | 2020-06-21 21:06 | NUR ---
PATIENT REQUESTING TO START INVEGA. STATES THAT SHE FELT BEST WHEN TAKING IT. VSS, NAD, SITTER WITHIN LINE OF SIGHT, WILL CONTINUE TO MONITOR.
[2020-06-21] MEDS: QUETIAPINE 200 MG TABLET PO SCH (21:10)
[2020-06-21] MEDS: BENZTROPINE 1 MG TABLET PO SCH (21:11)
--- NOTE | 2020-06-21 22:13 | NUR ---
PATIENT PROVIDED MEAL TRAY, STATES THAT SHE IS FEELING MORE RELAXED AFTER MEDICATION AND MAY BE ABLE TO SLEEP.
--- NOTE | 2020-06-21 22:36 | NUR ---
FURNITURE SERVICER: LORAINE, YUNIER, AND EMILY CALLED REGARDING ADMIT. LORAINE REFUSED D/T INSURANCE. [facility] STATES THAT SHE WILL REVIEW CHART AND DISCUSS WITH MD. RYLEE DE LEÓN REQUESTED REFAX; DONE W/ CONFIRMATION OF RECEIPT.
--- NOTE | 2020-06-21 23:12 | NUR ---
PATIENT SITTING ON STRETCHER WITHOUT COMPLAINT, STATES THAT SHE DOES NOT HAVE NEEDS AT THIS TIME, SITTER WITHIN LINE OF SIGHT, NAD, VSS, WILL CONTINUE TO MONITOR.
--- NOTE | 2020-06-21 23:39 | NUR ---
AREA REPRESENTATIVE: RYLEE LEE DENIED PATIENT SECONDARY TO [facility] INSURANCE WHICH IS NOT CONTRACTED WITH THAT FACILITY.
--- NOTE | 2020-06-22 00:04 | NUR ---
PATIENT AMBULATED TO RESTROOM WITHOUT ASSISTANCE, RETURNED TO BED WITHOUT INCIDENT. VSS, NAD, CALL [facility] WITHIN REACH, WILL CONTINUE TO MONITOR.
--- NOTE | 2020-06-22 01:08 | NUR ---
PATIENT SITTING ON STRETCHER, QUIETLY WATCHING TV, VSS, NAD, CALL [facility] WITHIN REACH, NO NEEDS AT THIS TIME, WILL CONTINUE TO MONITOR. Addendum: 06/22/20 at 0139 by SHARATH SITTER WITHIN LINE OF SIGHT
--- NOTE | 2020-06-22 01:39 | NUR ---
PATIENT REQUESTING ADDITIONAL MEAL TRAY, PROVIDED SNACK ITEMS AT THIS TIME.
[2020-06-22] MEDS ORDERED: IBUPROFEN 600 MG TABLET ONE (01:48)
[2020-06-22] MEDS ORDERED: IBUPROFEN 600 MG TABLET PO ONE (02:00)
--- NOTE | 2020-06-22 02:07 | NUR ---
PATIENT RESTING SUPINE ON STRETCHER WITH EYES CLOSED, CHEST RISE AND FALL VISIBLE FROM DOOR WAY, SITTER WITHIN LINE OF SIGHT, NO NEEDS AT THIS TIME, VSS, NAD, WILL CONTINUE TO MONITOR.
--- NOTE | 2020-06-22 03:02 | NUR ---
PATIENT RESTING ON STRETCHER WITH EYES CLOSED, CHEST RISE AND FALL VISIBLE FROM DOORWAY, SITTER WITHIN LINE OF SIGHT, NAD, VSS, NO NEEDS AT THIS TIME. WILL CONTINUE TO MONITOR.
--- NOTE | 2020-06-22 04:10 | NUR ---
PATIENT SITTING UPRIGHT ON STRETCHER WITH EYES CLOSED, SITTER WITHIN LINE OF SIGHT, NO NEEDS AT THIS TIME, NAD, CHEST RISE AND FALL VISIBLE FROM DOORWAY, VSS. WILL CONTINUE TO MONITOR.
--- NOTE | 2020-06-22 05:01 | NUR ---
PATIENT RESTING ON STRETCHER WITH EYES CLOSED, SITTER WITHIN LINE OF SIGHT, CHEST RISE AND FALL VISIBLE FROM ANDRADE WAY, NO NEEDS AT THIS TIME, VSS, NAD, WILL CONTINUE TO MONITOR.
[2020-06-22] MEDS ORDERED: ONDANSETRON ODT 4 MG PO ONE (06:00)
--- NOTE | 2020-06-22 06:02 | NUR ---
PATIENT SITTING UPRIGHT ON STRETCHER, WITH EYES CLOSED, WAKES EASILY, ASKING FOR MEAL TRAY. PATIENT RE-ORIENTED TO TIME, PROVIDED SNACK FOODS. SITTER WITHIN LINE OF SIGHT, VSS, ANDRES, WILL CONTINUE TO MONITOR.
--- NOTE | 2020-06-22 06:49 | NUR ---
REPORT TO IBRAHIMA YOON
--- NOTE | 2020-06-22 06:57 | NUR ---
Julian lamb in [facility] - 06/22/20 at 0707 by ANGELLA REC BS REPORT WATER PROVIDED PER PT REQUEST CO CP ERP AWARE PT PLACE ON GLASS MOLD REPAIRER
--- NOTE | 2020-06-22 07:00 | NUR ---
REC BS REPORT PT SLEEPING AT THIS TIME SITTER IN THE ANDRADE EYES ON THE PT
[2020-06-22] MEDS ORDERED: CYCLOBENZAPRINE 10 MG TABLET ONE (07:21)
--- NOTE | 2020-06-22 07:29 | NUR ---
PT CO PAIN ALL OVER REQ FLEXERIL GIVEN PER ORDERS
[2020-06-22] MEDS ORDERED: CYCLOBENZAPRINE 10 MG TABLET PO ONE (07:30)
--- NOTE | 2020-06-22 07:47 | NUR ---
SLEEPING AT THIS TIME
--- NOTE | 2020-06-22 09:45 | NUR ---
RESTING NAFN SITTER IN THE ANDRADE
[2020-06-22] MEDS ORDERED: BENZTROPINE 1 MG TABLET ONE ×2 (09:59→21:54)
[2020-06-22] MEDS ORDERED: QUETIAPINE 100MG TABLET ONE ×2 (09:59→21:54)
[2020-06-22] MEDS: QUETIAPINE 100MG TABLET PO SCH (10:06)
[2020-06-22] MEDS: BENZTROPINE 1 MG TABLET PO SCH ×2 (10:06→21:00)
--- NOTE | 2020-06-22 10:20 | NUR ---
MEDS GIVEN PER ORDERS UP TO PHONE FOR A CALL TO FATHER
[2020-06-22] MEDS: ACYCLOVIR 400 MG TABLET PO SCH (11:22)
--- NOTE | 2020-06-22 11:34 | NUR ---
Throughput RN note: Per SW pt [place] medicaid. Pt's chart refaxed to all area [facility] facilities with this updated information.
--- NOTE | 2020-06-22 11:41 | NUR ---
Throughput RN note: Called [facility], [facility] to confirm that they recieved the pt's packet.
--- NOTE | 2020-06-22 12:36 | NUR ---
Throughput note: [facility] called and states that pt must pay $4000 up front to be accepted there. Primary RN aware of this and states he will advise pt.
--- NOTE | 2020-06-22 13:11 | NUR ---
RECEIVED REPORT FROM IBRAHIMA YOON. ASSUMING CARE AT THIS TIME. PT SITTING ON HOSPITAL BED. PT IN DIRECT SIGHT OF SITTER. ROOM SECURE.
--- NOTE | 2020-06-22 15:37 | NUR ---
PT RESTING ON HOSPITAL BED. RESP EVEN AND UNLABORED. PT IN DIRECT SIGHT OF SITTER.
--- NOTE | 2020-06-22 17:48 | NUR ---
[facility] PROVIDED. PT APPRECIATIVE. PT IN DIRECT SIGHT OF SITTER.
--- NOTE | 2020-06-22 18:06 | NUR ---
PT USED PHONE TO CALL FATHER.
--- NOTE | 2020-06-22 18:41 | NUR ---
PT SITTING ON HOSPITAL BED. PT IN DIRECT SIGHT OF SITTER.
--- NOTE | 2020-06-22 18:59 | NUR ---
REPORT FROM KARRIE ESPINOSA. PT CARE ASSUMED.
[2020-06-22] MEDS: QUETIAPINE 200 MG TABLET PO SCH (21:00)
--- NOTE | 2020-06-22 23:05 | NUR ---
PT CALM, COOPERATIVE. DENIES ANY NEEDS AT THIS TIME, SITTER CONTINUES IN LINE OF SIGHT.
--- NOTE | 2020-06-23 02:25 | NUR ---
PT RESTING IN BED WITH ROOM SI SECURE, PT HAS SITTER AT DOOR. PT DENIED AN CURRENT WANTS OR NEEDS
--- NOTE | 2020-06-23 03:25 | NUR ---
Break RN: provided snacks and water. Patient sitting in [facility] with no complaints. Room secured, belongings locked in cabinet. Sitter outside.
--- NOTE | 2020-06-23 04:01 | NUR ---
PT RESTING IN BED WITH ROOM SI SECURE, PT HAS SITTER AT DOOR. PT DENIED AN CURRENT WANTS OR NEEDS
--- NOTE | 2020-06-23 06:04 | NUR ---
PT RESTING IN BED WITH ROOM SI SECURE, PT HAS SITTER AT DOOR. PT DENIED AN CURRENT WANTS OR NEEDS
--- NOTE | 2020-06-23 06:56 | NUR ---
RECEIVED REPORT FROM RICARDO. PT SITTING UP ON GURNEY AWAKE, CALM & COOPERATIVE, RESPONDS TO STAFF QUESTIONS, NAD, NO NEEDS AT THIS TIME, PT IN SAFE ENVIRONMENT, SITTER IN VIEW.
--- NOTE | 2020-06-23 08:04 | NUR ---
PT CONTINUES TO SIT UP ON GURNEY AWAKE, CALM & COOPERATIVE, RESPONDS TO STAFF QUESTIONS, NAD, NO NEEDS AT THIS TIME, PT REMAINS IN SAFE ENVIRONMENT, SITTER IN VIEW.
--- NOTE | 2020-06-23 08:27 | NUR ---
BREAKFAST TRAY GIVEN
--- NOTE | 2020-06-23 08:52 | NUR ---
REPORT GIVEN TO KATHRYN
[2020-06-23] MEDS ORDERED: QUETIAPINE 100MG TABLET ONE (09:00)
[2020-06-23] MEDS ORDERED: BENZTROPINE 1 MG TABLET ONE (09:01)
[2020-06-23] MEDS: BENZTROPINE 1 MG TABLET PO SCH (09:09)
[2020-06-23] MEDS: QUETIAPINE 100MG TABLET PO SCH (09:09)
[2020-06-23 09:33] VITALS: BP 135/88
[2020-06-23] MEDS: ACYCLOVIR 400 MG TABLET PO SCH (10:20)
--- NOTE | 2020-06-23 10:25 | NUR ---
COVID SWAB COLLECT AND SENT TO LAB.
[2020-06-23] MEDS ORDERED: PRAZ1CAP2 PO (13:12)
[2020-06-23] MEDS ORDERED: METF500T17 PO (13:12)
== END 2020-06-24 05:34 ==
LOC: ED 20:00
DX: F43.12 Post-traumatic stress disorder, chronic (principal); Z20.822 Contact with and (suspected) exposure to COVID-19; F29 Unspecified psychosis not due to a substance or known physiological condition; F31.9 Bipolar disorder, unspecified; R45.851 Suicidal ideations; R53.81 Other malaise; Z72.9 Problem related to lifestyle, unspecified; X58.XXXA Exposure to other specified factors, initial encounter; Y93.89 Activity, other specified; Y92.89 Other specified places as the place of occurrence of the external cause; Y99.8 Other external cause status
CPT/HCPCS: 36415; 80048; 80299; 80307; 80320; 80329; 81001; 82040; 85025; 87086; 87426; 99285; G0480

== ENCOUNTER 2020-06-23 10:31 | Inpatient (IN) | payer MEDICARE, MEDICAID ==
[~2020-06-23] VITALS: Ht 165.1 cm; Wt 100.3 kg
[~2020-06-23 10:31] MED LIST changes: -CYCL-259 PO; +CYCL10TA2 PO; +QUET400T4 PO
[2020-06-23] MEDS ORDERED: BISACODYL 10 MG SUPP PR PRN (11:30)
[2020-06-23] MEDS ORDERED: POLYETHYLENE GLYCOL 17 GM PACKET PO PRN (11:30)
[2020-06-23] MEDS ORDERED: ONDANSETRON ODT 4 MG PO PRN (11:30)
[2020-06-23] MEDS ORDERED: DOCUSATE 100 MG CAPSULE PO PRN (11:30)
[2020-06-23 12:51] VITALS: BP 113/79
[2020-06-23] MEDS ORDERED: METF500T17 PO (13:12)
[2020-06-23] MEDS ORDERED: PRAZ1CAP2 PO (13:12)
[2020-06-23] MEDS: QUETIAPINE 100MG TABLET PO SCH (19:51)
[2020-06-23 20:18] VITALS: BP 118/85
[2020-06-23] MEDS: LORazepam 1MG TABLET PO PRN (20:48)
[2020-06-24 06:48] LABS: BASOPHILS % (AUTO) 1 % (0-1); EOSINOPHILS % (AUTO) 4 % (1-7); LYMPHOCYTES % (AUTO) 38 % (22-44); MEAN CORPUSCULAR HEMOGLOBIN 29.4 pg (27.0-34.8); MEAN CORPUSCULAR HGB CONC 34.8 g/dL (32.4-35.8); MEAN PLATELET VOLUME 7.2 fL (7.4-10.4); MONOCYTES % (AUTO) 8 % (2-9); NEUTROPHILS % (AUTO) 50 % (42-75); PLATELET COUNT 350 x10^3/uL (130-400); RED BLOOD COUNT 4.66 x10^6/uL (3.82-5.3); RED CELL DISTRIBUTION WIDTH 14.9 % (9.6-15.2)
[2020-06-24 06:49] LABS: MD NO
[2020-06-24 06:59] LABS: ALBUMIN 3.3 g/dL (3.4-5.0); ANION GAP 6 mmol/L (5-15); CALCIUM 8.5 mg/dL (8.5-10.1); CHLORIDE 107 mmol/L (98-107); CHOLESTEROL, TOTAL 154 mg/dL (140-239); CREATININE 0.87 mg/dL (0.55-1.02)
[2020-06-24 07:10] LABS: CHOL/HDL RATIO 4.4; FREE T4 (FREE THYROXINE) 0.86 ng/dL (0.76-1.46); HDL CHOL % 23 % (28-40); HDL CHOLESTEROL (DIRECT) 35 mg/dL (40-60); LDL CHOLESTEROL,CALCULATED 77 mg/dL (54-169); LDL/HDL RATIO 2.2 (0.5-3.0); TRIGLYCERIDES 209 mg/dL (50-200); VLDL CHOLESTEROL 42 mg/dL (0-25)
[2020-06-24 07:43] VITALS: BP 85/56
[2020-06-24] MEDS: PALIPERIDONE 3 MG TAB.ER.24 PO SCH (08:25)
[2020-06-24] MEDS: LORazepam 1MG TABLET PO PRN ×2 (11:32→20:06)
[2020-06-24] MEDS: LIOTHYRONINE 5 MCG TABLET PO SCH (14:13)
[2020-06-24 19:51] VITALS: BP 118/80
[2020-06-24] MEDS: QUETIAPINE 100MG TABLET PO SCH (20:06)
[2020-06-25 07:28] VITALS: BP 106/70
[2020-06-25] MEDS: PALIPERIDONE 3 MG TAB.ER.24 PO SCH (08:46)
[2020-06-25] MEDS: LIOTHYRONINE 5 MCG TABLET PO SCH (08:46)
[2020-06-25] MEDS: LORazepam 1MG TABLET PO PRN (08:57)
[2020-06-25] MEDS: QUETIAPINE 100MG TABLET PO SCH (20:34)
[2020-06-26 07:15] VITALS: BP 114/79
[2020-06-26] MEDS: PALIPERIDONE 3 MG TAB.ER.24 PO SCH (09:17)
[2020-06-26] MEDS: LIOTHYRONINE 5 MCG TABLET PO SCH (09:17)
[2020-06-26] MEDS: LORazepam 1MG TABLET PO PRN ×2 (09:18→20:48)
[2020-06-26 19:58] VITALS: BP 123/87
[2020-06-26] MEDS: QUETIAPINE 100MG TABLET PO SCH (20:48)
[2020-06-27 07:34] VITALS: BP 101/68
[2020-06-27] MEDS: LORazepam 1MG TABLET PO PRN ×2 (08:42→19:33)
[2020-06-27] MEDS: LIOTHYRONINE 5 MCG TABLET PO SCH (08:42)
[2020-06-27] MEDS: PALIPERIDONE 3 MG TAB.ER.24 PO SCH (08:42)
[2020-06-27 19:32] VITALS: BP 102/72
[2020-06-27] MEDS: QUETIAPINE 100MG TABLET PO SCH (20:19)
[2020-06-28 07:15] VITALS: BP 113/73
[2020-06-28] MEDS: PALIPERIDONE 3 MG TAB.ER.24 PO SCH (09:26)
[2020-06-28] MEDS: LIOTHYRONINE 5 MCG TABLET PO SCH (09:26)
[2020-06-28] MEDS: LORazepam 1MG TABLET PO PRN ×2 (10:32→19:48)
[2020-06-28] MEDS: ACETAMINOPHEN 325 MG TABLET PO PRN (13:19)
[2020-06-28] MEDS: QUETIAPINE 100MG TABLET PO SCH (19:49)
[2020-06-29 07:13] VITALS: BP 108/70
[2020-06-29] MEDS: LIOTHYRONINE 5 MCG TABLET PO SCH (08:25)
[2020-06-29] MEDS: PALIPERIDONE 3 MG TAB.ER.24 PO SCH (08:25)
[2020-06-29] MEDS: LORazepam 1MG TABLET PO PRN ×2 (11:20→20:04)
[2020-06-29 15:57] VITALS: BP 152/92
[2020-06-29 19:45] VITALS: BP 0/0
[2020-06-29] MEDS: QUETIAPINE 100MG TABLET PO SCH (20:05)
[2020-06-30 07:46] VITALS: BP 89/62
[2020-06-30] MEDS: LIOTHYRONINE 5 MCG TABLET PO SCH (08:16)
[2020-06-30] MEDS: PALIPERIDONE 3 MG TAB.ER.24 PO SCH (08:17)
[2020-06-30] MEDS: ACETAMINOPHEN 325 MG TABLET PO PRN (18:35)
[2020-06-30] MEDS: QUETIAPINE 100MG TABLET PO SCH (20:12)
[2020-06-30] MEDS: LORazepam 1MG TABLET PO PRN (20:12)
[2020-07-01 07:40] VITALS: BP 105/69
[2020-07-01] MEDS: LIOTHYRONINE 5 MCG TABLET PO SCH (08:24)
[2020-07-01] MEDS: PALIPERIDONE 3 MG TAB.ER.24 PO SCH (08:24)
[2020-07-01] MEDS: LORazepam 1MG TABLET PO PRN ×2 (12:01→20:18)
[2020-07-01] MEDS: ACETAMINOPHEN 325 MG TABLET PO PRN (16:23)
[2020-07-01 20:03] VITALS: BP 120/81
[2020-07-01] MEDS: QUETIAPINE 100MG TABLET PO SCH (20:18)
[2020-07-02] MEDS: LIOTHYRONINE 5 MCG TABLET PO SCH (09:20)
[2020-07-02] MEDS: PALIPERIDONE 3 MG TAB.ER.24 PO SCH (09:20)
[2020-07-02] MEDS: LORazepam 1MG TABLET PO PRN ×2 (09:55→20:05)
[2020-07-02] MEDS: ACETAMINOPHEN 325 MG TABLET PO PRN ×2 (11:35→18:47)
[2020-07-02 20:00] VITALS: BP 121/86
[2020-07-02] MEDS: QUETIAPINE 100MG TABLET PO SCH (20:06)
[2020-07-03] MEDS: LIOTHYRONINE 5 MCG TABLET PO SCH (08:41)
[2020-07-03] MEDS: PALIPERIDONE 3 MG TAB.ER.24 PO SCH (08:41)
[2020-07-03] MEDS: LORazepam 1MG TABLET PO PRN ×2 (08:41→20:21)
[2020-07-03] MEDS: ACETAMINOPHEN 325 MG TABLET PO PRN (08:47)
[2020-07-03 19:59] VITALS: BP 118/85
[2020-07-03] MEDS: QUETIAPINE 100MG TABLET PO SCH (20:21)
[2020-07-04 07:21] VITALS: BP 119/78
[2020-07-04] MEDS: LIOTHYRONINE 5 MCG TABLET PO SCH (08:54)
[2020-07-04] MEDS: LORazepam 1MG TABLET PO PRN ×2 (08:54→20:58)
[2020-07-04] MEDS: PALIPERIDONE 3 MG TAB.ER.24 PO SCH (08:54)
[2020-07-04 19:17] VITALS: BP 120/85
[2020-07-04] MEDS: QUETIAPINE 100MG TABLET PO SCH (20:57)
[2020-07-04] MEDS: TOPIRAMATE 25 MG TABLET PO SCH (20:58)
[2020-07-05 07:37] VITALS: BP 116/75
[2020-07-05] MEDS: LIOTHYRONINE 5 MCG TABLET PO SCH (09:36)
[2020-07-05] MEDS: PALIPERIDONE 3 MG TAB.ER.24 PO SCH (09:36)
[2020-07-05] MEDS: LORazepam 1MG TABLET PO PRN ×2 (13:03→20:17)
[2020-07-05 19:23] VITALS: BP 125/82
[2020-07-05] MEDS: QUETIAPINE 100MG TABLET PO SCH (20:17)
[2020-07-05] MEDS: TOPIRAMATE 25 MG TABLET PO SCH (20:17)
[2020-07-06 07:49] VITALS: BP 93/65
[2020-07-06] MEDS: LIOTHYRONINE 5 MCG TABLET PO SCH (09:11)
[2020-07-06] MEDS: PALIPERIDONE 3 MG TAB.ER.24 PO SCH (09:11)
[2020-07-06 09:17] VITALS: BP 109/72
[2020-07-06] MEDS: LORazepam 1MG TABLET PO PRN ×2 (11:45→20:39)
[2020-07-06] MEDS: QUETIAPINE 100MG TABLET PO SCH (20:38)
[2020-07-06] MEDS: TOPIRAMATE 25 MG TABLET PO SCH (20:39)
[2020-07-07 07:56] VITALS: BP 97/67
[2020-07-07] MEDS: LIOTHYRONINE 5 MCG TABLET PO SCH (08:42)
[2020-07-07] MEDS: LORazepam 1MG TABLET PO PRN ×2 (08:42→20:39)
[2020-07-07] MEDS: PALIPERIDONE 3 MG TAB.ER.24 PO SCH (08:42)
[2020-07-07 19:50] VITALS: BP 112/83
[2020-07-07] MEDS: TOPIRAMATE 25 MG TABLET PO SCH (20:30)
[2020-07-07] MEDS: QUETIAPINE 100MG TABLET PO SCH (20:30)
[2020-07-08] MEDS: LIOTHYRONINE 5 MCG TABLET PO SCH (09:24)
[2020-07-08] MEDS: PALIPERIDONE 3 MG TAB.ER.24 PO SCH (09:25)
[2020-07-08] MEDS: LORazepam 1MG TABLET PO PRN ×2 (09:36→20:49)
[2020-07-08] MEDS: ACETAMINOPHEN 325 MG TABLET PO PRN (15:29)
[2020-07-08 19:46] VITALS: BP 108/76
[2020-07-08] MEDS: QUETIAPINE 100MG TABLET PO SCH (20:49)
[2020-07-08] MEDS: TOPIRAMATE 25 MG TABLET PO SCH (20:49)
[2020-07-09 07:39] VITALS: BP 105/74
[2020-07-09] MEDS: LIOTHYRONINE 5 MCG TABLET PO SCH (08:47)
[2020-07-09] MEDS: LORazepam 1MG TABLET PO PRN ×2 (08:47→20:27)
[2020-07-09] MEDS: PALIPERIDONE 3 MG TAB.ER.24 PO SCH (08:47)
[2020-07-09] MEDS: ACETAMINOPHEN 325 MG TABLET PO PRN (12:42)
[2020-07-09] MEDS: TOPIRAMATE 25 MG TABLET PO SCH (20:27)
[2020-07-09] MEDS: QUETIAPINE 100MG TABLET PO SCH (20:27)
[2020-07-10] MEDS: LIOTHYRONINE 5 MCG TABLET PO SCH (08:03)
[2020-07-10] MEDS: PALIPERIDONE 3 MG TAB.ER.24 PO SCH (08:03)
[2020-07-10] MEDS: LORazepam 1MG TABLET PO PRN ×2 (09:16→21:31)
[2020-07-10 20:18] VITALS: BP 118/86
[2020-07-10] MEDS: QUETIAPINE 100MG TABLET PO SCH (21:31)
[2020-07-10] MEDS: TOPIRAMATE 25 MG TABLET PO SCH (21:31)
[2020-07-11 07:39] VITALS: BP 106/62
[2020-07-11] MEDS: LIOTHYRONINE 5 MCG TABLET PO SCH (08:26)
[2020-07-11] MEDS: PALIPERIDONE 3 MG TAB.ER.24 PO SCH (08:26)
[2020-07-11] MEDS: LORazepam 1MG TABLET PO PRN ×2 (13:43→20:18)
[2020-07-11 19:18] VITALS: BP 107/70
[2020-07-11] MEDS: TOPIRAMATE 25 MG TABLET PO SCH (20:18)
[2020-07-11] MEDS ORDERED: QUETIAPINE 100MG TABLET PO ONE (21:00)
[2020-07-11] MEDS ORDERED: QUETIAPINE 100MG TABLET PO SCH ×2 (21:00)
[2020-07-12 07:35] VITALS: BP 102/70
[2020-07-12] MEDS: LIOTHYRONINE 5 MCG TABLET PO SCH (08:15)
[2020-07-12] MEDS: PALIPERIDONE 3 MG TAB.ER.24 PO SCH (08:15)
[2020-07-12 19:30] VITALS: BP 106/74
[2020-07-12] MEDS: TOPIRAMATE 25 MG TABLET PO SCH (20:35)
[2020-07-12] MEDS: QUETIAPINE 100MG TABLET PO SCH (20:35)
[2020-07-12] MEDS: LORazepam 1MG TABLET PO PRN (20:35)
[2020-07-13 07:34] VITALS: BP 105/67
[2020-07-13] MEDS: PALIPERIDONE 3 MG TAB.ER.24 PO SCH (08:10)
[2020-07-13] MEDS: LIOTHYRONINE 5 MCG TABLET PO SCH (08:10)
[2020-07-13 19:45] VITALS: BP 113/78
[2020-07-13] MEDS: QUETIAPINE 100MG TABLET PO SCH (20:47)
[2020-07-13] MEDS: TOPIRAMATE 25 MG TABLET PO SCH (20:47)
[2020-07-13] MEDS: LORazepam 1MG TABLET PO PRN (20:47)
[2020-07-14 07:34] VITALS: BP 107/75
[2020-07-14] MEDS: PALIPERIDONE 3 MG TAB.ER.24 PO SCH (07:46)
[2020-07-14] MEDS: LIOTHYRONINE 5 MCG TABLET PO SCH (07:46)
[2020-07-14] MEDS: LORazepam 1MG TABLET PO PRN ×2 (07:50→20:08)
[2020-07-14] MEDS ORDERED: PALI3TAB11 PO (15:10)
[2020-07-14] MEDS ORDERED: LIOT5TAB10 PO (15:10)
[2020-07-14] MEDS ORDERED: TOPI25TA32 PO (15:10)
[2020-07-14] MEDS ORDERED: QUET100T PO (15:10)
[2020-07-14 19:12] VITALS: BP 110/78
[2020-07-14] MEDS: TOPIRAMATE 25 MG TABLET PO SCH (20:09)
[2020-07-14] MEDS: ACETAMINOPHEN 325 MG TABLET PO PRN (20:09)
[2020-07-14] MEDS: QUETIAPINE 100MG TABLET PO SCH (20:09)
[2020-07-15] MEDS: PALIPERIDONE 3 MG TAB.ER.24 PO SCH (09:29)
[2020-07-15] MEDS: LIOTHYRONINE 5 MCG TABLET PO SCH (09:29)
[2020-07-15] MEDS: LORazepam 1MG TABLET PO PRN (09:39)
== END 2020-07-15 12:15 | disposition home or self-care (01) | DRG 885 ==
LOC: 3E 11:48
PROVIDERS: ADMIT Psychiatry & Neurology Psychosomatic Medicine; ATTEND Psychiatry & Neurology Psychosomatic Medicine
DX: F20.0 Paranoid schizophrenia (principal); A60.00 Herpesviral infection of urogenital system, unspecified; E66.9 Obesity, unspecified; F43.10 Post-traumatic stress disorder, unspecified; G89.29 Other chronic pain
CPT/HCPCS: 36415; 71045; 80061; 80069; 83735; 84439; 84443; 84481; 85025; 87426; 93005

== ENCOUNTER 2020-07-15 13:07 | Emergency (ER) | payer MEDICARE, MEDICAID ==
[~2020-07-15] VITALS: Ht 165.1 cm; Wt 99.2 kg
[~2020-07-15 13:07] MED LIST changes: +LIOT5TAB10 PO; +METF500T17 PO; +PALI3TAB11 PO; +PRAZ1CAP2 PO; +QUET100T PO; +TOPI25TA32 PO
[2020-07-15 14:18] LABS: BASOPHILS % (AUTO) 1 % (0-1); EOSINOPHILS % (AUTO) 1 % (1-7); LYMPHOCYTES % (AUTO) 27 % (22-44); MEAN CORPUSCULAR HEMOGLOBIN 28.9 pg (27.0-34.8); MEAN CORPUSCULAR HGB CONC 34.2 g/dL (32.4-35.8); MEAN PLATELET VOLUME 7.1 fL (7.4-10.4); MONOCYTES % (AUTO) 7 % (2-9); NEUTROPHILS % (AUTO) 64 % (42-75); PLATELET COUNT 395 x10^3/uL (130-400); RED BLOOD COUNT 4.91 x10^6/uL (3.82-5.3); RED CELL DISTRIBUTION WIDTH 15.1 % (9.6-15.2)
[2020-07-15 14:19] LABS: MD NO
[2020-07-15 14:29] LABS: ALANINE AMINOTRANSFERASE 74 U/L (12-78); ANION GAP 12 mmol/L (5-15); CALCIUM 8.8 mg/dL (8.5-10.1); CHLORIDE 109 mmol/L (98-107)
[2020-07-15 14:34] LABS: ALKALINE PHOSPHATASE 86 U/L (45-117); BILIRUBIN,TOTAL 0.8 mg/dL (0.2-1.0); SALICYLATE LEVEL < 1.7 mg/dL (2.8-20.0)
--- NOTE | 2020-07-15 14:56 | NUR ---
ADRY Lopez at bedside now.
--- NOTE | 2020-07-15 15:28 | NUR ---
Pt made aware of need of [facility], pt states "oh actually, I can't go to [facility] right now."
[2020-07-15] MEDS ORDERED: LORazepam 1MG TABLET PO PRN (17:00)
[2020-07-15 17:26] LABS: MICROSCOPIC INDICATED
--- NOTE | 2020-07-15 17:31 | NUR ---
Pt sitting up right in bed, looking unblinking at sitter. NADN. All needs met at this time.
[2020-07-15 17:33] LABS: AMPHETAMINE SCREEN, URINE Negative (Negative); BARBITURATE SCREEN, URINE Negative (Negative); BENZODIAZEPINE SCREEN, URINE Negative (Negative); CANNABINOID SCREEN, URINE Negative (Negative); COCAINE SCREEN, URINE Negative (Negative); METHADONE SCREEN, URINE Negative (Negative); OPIATE SCREEN, URINE Negative (Negative)
--- NOTE | 2020-07-15 18:13 | NUR ---
DENIED BY [facility]
--- NOTE | 2020-07-15 18:13 | NUR ---
PACKET FAXED TO [facility]
--- NOTE | 2020-07-15 18:41 | NUR ---
MD Rey at to accept. Report to KARRIE Bolanos.
--- NOTE | 2020-07-15 19:09 | NUR ---
Report to KARRIE Bolanos at given by this RN.
--- NOTE | 2020-07-15 19:09 | NUR ---
Report to KARRIE Nj. Pt resting in bed. NIXON. In view of bakariter.
--- NOTE | 2020-07-15 19:41 | NUR ---
patient resting sitting up in bed. patient notified of plan to discharge to at 1999. patient delayed response asking "what happened to [facility]?" RN explained that [facility] accepted patient and this is where she will be transferring to for further psych treatment. patient responds "ok. thank you ma'am" safety maintained. 1:1 sitter in view of patient
--- NOTE | 2020-07-15 20:13 | NUR ---
patient released with [facility] for transfer to [place]. steady gait to ambulance bay. all personal belongings with patient. Transfer packet with [facility] personel.
[2020-07-15 20:14] VITALS: BP 119/80
[2020-07-15] MEDS ORDERED: QUETIAPINE 100MG TABLET PO SCH (21:00)
[2020-07-15] MEDS ORDERED: TOPIRAMATE 25 MG TABLET PO SCH (21:00)
[2020-07-16] MEDS ORDERED: PALIPERIDONE 3 MG TAB.ER.24 PO SCH (09:00)
== END 2020-07-15 20:17 ==
LOC: ED 13:25
DX: F33.3 Major depressive disorder, recurrent, severe with psychotic symptoms (principal); R45.851 Suicidal ideations; R00.0 Tachycardia, unspecified; Z87.891 Personal history of nicotine dependence
CPT/HCPCS: 36415; 80053; 80299; 80307; 80320; 80329; 81001; 84703; 85025; 99285; G0480

== ENCOUNTER 2020-12-10 15:41 | Inpatient (IN) | payer MEDICARE, MEDICAID ==
[~2020-12-10] VITALS: Ht 165.1 cm; Wt 96.2 kg
[~2020-12-10 15:41] MED LIST changes: -ACYC-114 PO; +ACYC-40 PO; +OMEP-110 PO; +PALI234D INJ; +PRAZ5CAP2 PO
[2020-12-10] MEDS ORDERED: DOCUSATE 100 MG CAPSULE PO PRN (16:30)
[2020-12-10] MEDS ORDERED: ONDANSETRON ODT 4 MG PO PRN (16:30)
[2020-12-10] MEDS ORDERED: BISACODYL 10 MG SUPP PR PRN (16:30)
[2020-12-10] MEDS ORDERED: POLYETHYLENE GLYCOL 17 GM PACKET PO PRN (16:30)
[2020-12-10] MEDS ORDERED: PLEASE ENTER HEIGHT AND WEIGHT MC SCH (17:00)
[2020-12-10 17:13] VITALS: BP 116/79
[2020-12-10 19:28] VITALS: BP 101/72
[2020-12-10] MEDS: TOPIRAMATE 25 MG TABLET PO SCH (20:59)
[2020-12-10] MEDS: LORazepam 1MG TABLET PO SCH (20:59)
[2020-12-10] MEDS: QUETIAPINE 200 MG TABLET PO SCH (20:59)
[2020-12-10 21:41] LABS: MICROSCOPIC INDICATED
[2020-12-11 05:58] LABS: FREE T4 (FREE THYROXINE) 0.58 ng/dL (0.76-1.46)
[2020-12-11 07:32] VITALS: BP 99/67
[2020-12-11] MEDS: LORazepam 1MG TABLET PO SCH ×2 (09:06→19:58)
[2020-12-11] MEDS ORDERED: METF500T17 PO (11:11)
[2020-12-11 19:30] VITALS: BP 105/72
[2020-12-11] MEDS: QUETIAPINE 200 MG TABLET PO SCH (19:58)
[2020-12-11] MEDS: TOPIRAMATE 25 MG TABLET PO SCH (19:58)
[2020-12-11] MEDS: CEFDINIR 300 MG CAPSULE PO SCH (19:58)
[2020-12-11] MEDS: ACETAMINOPHEN 325 MG TABLET PO PRN (19:58)
[2020-12-12] MEDS: OMEPRAZOLE 20 MG CAPSULE.DR PO SCH (05:47)
[2020-12-12 07:30] VITALS: BP 103/69
[2020-12-12] MEDS: LORazepam 1MG TABLET PO SCH ×2 (08:36→15:05)
[2020-12-12] MEDS: CEFDINIR 300 MG CAPSULE PO SCH ×2 (08:37→20:49)
[2020-12-12] MEDS ORDERED: HYDROXYZINE PAMOATE 50MG CAP PO PRN (15:00)
[2020-12-12 18:54] VITALS: BP 98/71
[2020-12-12] MEDS: TOPIRAMATE 25 MG TABLET PO SCH (20:49)
[2020-12-12] MEDS: QUETIAPINE 200 MG TABLET PO SCH (20:49)
[2020-12-12] MEDS: ACETAMINOPHEN 325 MG TABLET PO PRN (20:49)
[2020-12-13] MEDS: OMEPRAZOLE 20 MG CAPSULE.DR PO SCH (06:19)
[2020-12-13 07:13] VITALS: BP 99/66
[2020-12-13] MEDS: LIOTHYRONINE 5 MCG TABLET PO SCH (08:47)
[2020-12-13] MEDS: CEFDINIR 300 MG CAPSULE PO SCH ×2 (08:47→20:40)
[2020-12-13] MEDS: LORazepam 1MG TABLET PO SCH ×2 (08:48→15:06)
[2020-12-13] MEDS: ACYCLOVIR 400 MG TABLET PO SCH (08:48)
[2020-12-13 19:23] VITALS: BP 118/76
[2020-12-13] MEDS: QUETIAPINE 200 MG TABLET PO SCH (20:40)
[2020-12-13] MEDS: TOPIRAMATE 25 MG TABLET PO SCH (20:40)
[2020-12-13] MEDS: ACETAMINOPHEN 325 MG TABLET PO PRN (20:40)
[2020-12-14] MEDS: OMEPRAZOLE 20 MG CAPSULE.DR PO SCH (05:46)
[2020-12-14 07:40] VITALS: BP 100/68
[2020-12-14] MEDS: LORazepam 1MG TABLET PO SCH ×2 (08:40→15:09)
[2020-12-14] MEDS: LIOTHYRONINE 5 MCG TABLET PO SCH (08:40)
[2020-12-14] MEDS: ACYCLOVIR 400 MG TABLET PO SCH (08:40)
[2020-12-14] MEDS: CEFDINIR 300 MG CAPSULE PO SCH ×2 (08:40→20:35)
[2020-12-14] MEDS: ACETAMINOPHEN 325 MG TABLET PO PRN (08:43)
[2020-12-14] MEDS: PALIPERIDONE 3 MG TAB.ER.24 PO SCH (16:30)
[2020-12-14 19:21] VITALS: BP 109/71
[2020-12-14] MEDS: TOPIRAMATE 25 MG TABLET PO SCH (20:35)
[2020-12-14] MEDS: QUETIAPINE 200 MG TABLET PO SCH (20:36)
[2020-12-15] MEDS: OMEPRAZOLE 20 MG CAPSULE.DR PO SCH (05:36)
[2020-12-15 07:49] VITALS: BP 98/67
[2020-12-15] MEDS: PALIPERIDONE 3 MG TAB.ER.24 PO SCH (08:37)
[2020-12-15] MEDS: ACYCLOVIR 400 MG TABLET PO SCH (08:37)
[2020-12-15] MEDS: LORazepam 1MG TABLET PO SCH ×2 (08:37→15:03)
[2020-12-15] MEDS: LIOTHYRONINE 5 MCG TABLET PO SCH (08:37)
[2020-12-15] MEDS: KETOCONAZOLE 2% 120 ML SHAMPOO TP SCH (09:30)
[2020-12-15 18:11] VITALS: BP 102/70
[2020-12-15] MEDS: TOPIRAMATE 25 MG TABLET PO SCH (20:25)
[2020-12-15] MEDS: QUETIAPINE 200 MG TABLET PO SCH (20:25)
[2020-12-16] MEDS: OMEPRAZOLE 20 MG CAPSULE.DR PO SCH (05:57)
[2020-12-16 07:27] VITALS: BP 99/63
[2020-12-16] MEDS: LIOTHYRONINE 5 MCG TABLET PO SCH (08:33)
[2020-12-16] MEDS: ACYCLOVIR 400 MG TABLET PO SCH (08:33)
[2020-12-16] MEDS: LORazepam 1MG TABLET PO SCH ×2 (08:33→15:36)
[2020-12-16] MEDS: PALIPERIDONE 3 MG TAB.ER.24 PO SCH (08:33)
[2020-12-16 19:29] VITALS: BP 108/76
[2020-12-16] MEDS: TOPIRAMATE 25 MG TABLET PO SCH (20:45)
[2020-12-16] MEDS: QUETIAPINE 200 MG TABLET PO SCH (20:45)
[2020-12-17] MEDS: OMEPRAZOLE 20 MG CAPSULE.DR PO SCH (05:47)
[2020-12-17 07:29] VITALS: BP 106/69
[2020-12-17] MEDS: LORazepam 1MG TABLET PO SCH ×2 (09:06→15:35)
[2020-12-17] MEDS: LIOTHYRONINE 5 MCG TABLET PO SCH (09:06)
[2020-12-17] MEDS: PALIPERIDONE 3 MG TAB.ER.24 PO SCH (09:06)
[2020-12-17] MEDS: ACYCLOVIR 400 MG TABLET PO SCH (09:06)
[2020-12-17] MEDS ORDERED: PALIPERIDONE PALMITATE 234 MG/1.5 ML IM ONE (14:30)
[2020-12-17] MEDS ORDERED: PALIPERIDONE IM SCH (16:00)
[2020-12-17] MEDS ORDERED: PALIPERIDONE PALMITATE 156 MG/ML IM ONE (16:00)
[2020-12-17] MEDS ORDERED: PALIPERIDONE PALMITATE 39 MG/0.25 ML IM ONE (16:30)
[2020-12-17 20:02] VITALS: BP_SYST 112; BP_SYST 96; BP_DIAS 64; BP_DIAS 72
[2020-12-17] MEDS: QUETIAPINE 200 MG TABLET PO SCH (20:19)
[2020-12-17] MEDS: ACETAMINOPHEN 325 MG TABLET PO PRN (20:19)
[2020-12-17] MEDS: TOPIRAMATE 25 MG TABLET PO SCH (20:19)
[2020-12-18] MEDS: OMEPRAZOLE 20 MG CAPSULE.DR PO SCH (05:52)
[2020-12-18 07:26] VITALS: BP 99/64
[2020-12-18] MEDS: LIOTHYRONINE 5 MCG TABLET PO SCH (08:17)
[2020-12-18] MEDS: LORazepam 1MG TABLET PO SCH (08:17)
[2020-12-18] MEDS: ACYCLOVIR 400 MG TABLET PO SCH (08:18)
[2020-12-18] MEDS: PALIPERIDONE 3 MG TAB.ER.24 PO SCH (08:18)
[2020-12-18] MEDS: KETOCONAZOLE 2% 120 ML SHAMPOO TP SCH (09:30)
[2020-12-18] MEDS ORDERED: PALI3TAB11 PO (10:48)
== END 2020-12-18 11:30 | disposition home or self-care (01) | DRG 885 ==
LOC: 3E 16:37
PROVIDERS: ADMIT Psychiatry & Neurology Psychosomatic Medicine; ATTEND Psychiatry & Neurology Psychosomatic Medicine
DX: F25.0 Schizoaffective disorder, bipolar type (principal); M32.9 Systemic lupus erythematosus, unspecified; N39.0 Urinary tract infection, site not specified; R45.851 Suicidal ideations; E03.9 Hypothyroidism, unspecified; B96.20 Unspecified Escherichia coli [E. coli] as the cause of diseases classified elsewhere; F43.10 Post-traumatic stress disorder, unspecified; K21.9 Gastro-esophageal reflux disease without esophagitis; G89.29 Other chronic pain; Z79.899 Other long term (current) drug therapy; Z82.5 Family history of asthma and other chronic lower respiratory diseases; Z87.891 Personal history of nicotine dependence; Z91.5 Personal history of self-harm
CPT/HCPCS: 36415; 71045; 81001; 84439; 84443; 87077; 87086; 87186; 93005